=== PATIENT | female | born 1985 | race Caucasian/White ===

== ENCOUNTER 2020-06-06 11:05 | Emergency (ER) | payer OTHER, SELFPAY ==
--- NOTE | ~2020-06-06 | US_ITS ---
EXAMINATION: US pelvic complete w TV EXAM DATE: 06/06/2020 13:46 INDICATION: Abnormal uterine bleeding. TECHNIQUE: Pelvic transabdominal and transvaginal sonogram was performed. There are multiple graysca le and Doppler images available for interpretation. There is no prior study for comparison. FINDINGS: Uterus measures 8.8 x 6.4 x 5.1 cm, is anteverted and morphologically normal. Endometrial stripe measures 6 mm, within normal limits. There are nabothian cysts. There is no free pelvic flu id. Right adnexa: The ovary is not identified. There is no adnexal mass. Left adnexa: The ovary is not identified. There is no adnexal mass. IMPRESSION: 1. Unremarkable pelvic ultrasound exam. Reviewed, dictated and finalized at location A.
[2020-06-06 11:43] VITALS: BP 113/71; PULSE 61; RESP 18; TEMP 36.7; O2SAT 99
--- NOTE | 2020-06-06 12:22 | ED.FEMALEGU ---
HPI - Female Genitourinary General Chief complaint: Vaginal Bleeding Stated complaint: Vaginal Bleeding Time Seen by Provider: 06/06/20 12:05 Source: patient Mode of arrival: ambulatory Limitations: no limitations History of Present Illness HPI Narrative: This is a 35-year-old female that presents to the emergency department for abnormal uterine bleeding. Reports she started her cycle 3 days ago. Reports she has had very heavy bleeding. She had her IUD taken out in March of this year. Was having normal cycles until this 1 which seems to be very heavy. She is not on any other form of control. Reports some intermittent crampy pelvic pain. Her supervisor of research is Dr. Roberst. Denies fever, vomiting, or dysuria. Related Data Allergies Allergy/AdvReac Type Severity Reaction Status Date / Time vancomycin Allergy Mild Verified 04/30/16 13:55 morphine Allergy Unknown Nervousness Verified 04/30/16 13:55 Penicillins Allergy Unknown Verified 04/05/15 11:31 Sulfa (Sulfonamide Allergy Unknown Verified 04/05/15 11:31 Antibiotics) HYDROMORPHONE HCL Allergy Unknown Sweating Uncoded 04/30/16 13:55 Review of Systems Review of Systems: Narrative: CONSTITUTIONAL: Denies fever GASTROINTESTINAL: Reports abdominal/pelvic pain. Denies nausea, vomiting GENITOURINARY: Denies dysuria All systems reviewed & are unremarkable except as noted in HPI and below PMFSH Past Medical History Medical History (Updated 06/06/20 @ 15:15 by Laura Woods PA-C) History of depression Family History Family History (Updated 09/23/15 @ 23:19 by DOCTOR UNKNOWN) Mother Depression Sibling Depression Family history of diabetes mellitus in first degree relative Father Hypertension Family history of diabetes mellitus in first degree relative Other Diabetes mellitus Family history of migraine headaches Family history of thyroid disease Social History Social History Smoking status: Light tobacco smoker Alcohol intake: current Exam Narrative: Exam Narrative: GENERAL: Well-appearing, well-nourished, and in no acute distress. HEAD: Normocephalic, atraumatic. EYES: EOMI. CHEST: Clear to auscultation. No respiratory distress. No wheezes rales or rhonchi HEART: Regular rate and rhythm. No murmur heard. Normal peripheral pulses. ABDOMEN: Soft, nontender, nondistended, normal active bowel sounds. EXTREMITIES: Normal range of motion. No edema. SKIN: Warm, dry, no rash. NEURO: No focal deficits. Alert and oriented x3. PSYCH: Normal mood and affect PELVIC: Normal external genitalia. Small to moderate amount of bright red blood in the vaginal level, slowly oozing from cervix Course Consultations Consultation #1: Spoke with Dr. Roberts about patient and work-up will follow-up in clinic Date: 06/06/20 Time: 15:12 Vital Signs Vital signs: Vital Signs Temperature 98.0 F 06/06/20 11:43 Pulse Rate 61 06/06/20 11:43 Respiratory Rate 18 06/06/20 11:43 Blood Pressure 113/71 06/06/20 11:43 Pulse Oximetry 99 06/06/20 11:43 Temperature 98.0 F 06/06/20 11:43 Pulse Rate 52 L 06/06/20 14:52 Respiratory Rate 16 06/06/20 14:52 Blood Pressure 123/85 06/06/20 14:52 Pulse Oximetry 100 06/06/20 14:52 MDM - Female Genitourinary MDM Narrative Medical decision making narrative: Patient presents to the emergency department for heavy menstrual bleeding. Had her IUD out a couple of months ago. Was having normal periods until this cycle which has been heavy. Patient's vitals are stable. Hemoglobin is 12.7. test is negative. Pelvic ultrasound is unremarkable. No concerning amount of bleeding on exam. Patient is stable and felt appropriate for further outpatient evaluation. Spoke with Dr. Roberts about patient and work-up who will follow-up in clinic. Patient was given warnings to return to the ER Lab Data Attestation: I reviewed the patient's lab results. Result diagrams: 06/06/20 12:22 04
[2020-06-06 12:29] LABS: Basophils Percent Auto 0.5 % (0.2-1.2); Eosinophils Absolute Auto 0.3 K/mm3 (0-0.3); Eosinophils Percent Auto 5.7 % (0-4.4); Hematocrit 37.8 % (37.0-47.0); Hemoglobin 12.7 g/dL (12.0-15.0); Lymphocytes Absolute Auto 2.09 K/mm3 (0.9-3.2); Lymphocytes Percent Auto 35.9 % (18.3-44.2); Mean Corpuscular HGB Conc 33.6 g/dl (32-36); Mean Corpuscular Hemoglobin 28.7 pg (26-34); Mean Corpuscular Volume 85.5 fl (80-100); Mean Platelet Volume 10.1 fl (7.4-10.4); Monocytes Absolute Auto 0.4 K/mm3 (0.1-0.6); Neutrophils Percent Auto 50.9 % (45.5-73.1); Platelet Count Result 183 k/mm3 (150-375); Red Blood Count 4.42 M/mm3 (4.2-5.4); White Blood Count 5.8 K/mm3 (4.5-10.0)
[2020-06-06 12:42] LABS: Alanine Aminotransferase 11 U/L (4-35); Albumin Level 3.7 g/dL (3.5-5.1); Alkaline Phosphatase 59 U/L (38-126); Anion Gap 4 mmol/L (8-16); Aspartate Amino Transferase 15 U/L (14-36); Bilirubin,Total < 0.1 mg/dL (0.2-1.3); Blood Urea Nitrogen 12 mg/dL (7-17); Calcium 8.6 mg/dL (8.4-10.2); Carbon Dioxide 29 mmol/L (22-30); Chloride 109 mmol/L (98-107); Estimated CRCL calculation 119 ml/min; Estimated Glomerular Filt Rate > 60; Glucose 95 mg/dL (65-105); Sodium 142 mmol/L (137-145)
[2020-06-06 12:52] LABS: INR 0.9; Prothrombin Time 12.9 Seconds (11.1-14.7)
[2020-06-06 12:53] LABS: Partial Thromboplastin Time 29.2 SECONDS (22.3-36.8)
[2020-06-06 12:55] VITALS: BP 123/71; PULSE 54
[2020-06-06 12:56] VITALS: BP 133/76
[2020-06-06 12:58] VITALS: BP 123/85; PULSE 73
[2020-06-06 13:01] LABS: Beta HCG Quantitative < 2.39 mIU/ML
[2020-06-06 13:08] LABS: Add Urine Microscopic? NO; Appearance Urine Clear (Clear); Bilirubin Urine Negative (Negative); Blood Urine Negative (Negative); Color Urine Yellow (Yellow); Glucose Urine UA Negative (Negative); Ketones Urine Negative (Negative); Leukocyte Esterase Ur Negative LEU/UL (Negative); Nitrate Urine Negative (Negative); Protein Urine Negative (Negative); Specific Grav Ur 1.011 (1.001-1.035); Urobilinogen Urine Negative mg/dL (<2.0)
[2020-06-06] MEDS: SODIUM CHLORIDE 0.9% IV 1,000 ML 999 ML IV CONT (14:09)
[2020-06-06 14:52] VITALS: BP 123/85; PULSE 52; RESP 16; O2SAT 100
== END 2020-06-06 15:25 | disposition home or self-care (01) ==
PROVIDERS: Physician Assistant; Emergency Provider Emergency Medicine
DX: N93.8 Other specified abnormal uterine and vaginal bleeding (principal); F17.200 Nicotine dependence, unspecified, uncomplicated
CPT/HCPCS: 36415; 76830; 76856; 80053; 81003; 81025; 84702; 85025; 85461; 85610; 85730; 96360; 99284; J7030

== ENCOUNTER 2020-11-20 10:52 | Emergency (ER) | payer OTHER, SELFPAY ==
--- NOTE | ~2020-11-20 | XR_ITS ---
EXAMINATION: XR foot LT min 3V EXAM DATE: 11/20/2020 11:15 INDICATION: Trauma today fell out of lifted truck/lateral pain . Initial encounter. TECHNIQUE: Left foot dorsoplantar, lateral and oblique projections obtained and reviewed. There is n o prior study for comparison. FINDINGS: There is acute closed posttraumatic left 5th metatarsal base fracture with about 5 mm dist raction. Fracture fragment is over 1 cm in size. This should be followed up by orthopedic surgeon to exclude nonunion, or need for internal fixation. There is overlying soft tissue swelling. No other ac raffi findings. Tiny calcaneal posterior spur. IMPRESSION: Left 5th metatarsal base fracture, mild distraction. Orthopedic consult. Reviewed, dictated and finalized at location A. IMPRESSION: Left 5th metatarsal base fracture, mild distraction. Orthopedic co nsult.
[2020-11-20 11:05] VITALS: BP 141/85; PULSE 88; RESP 18; TEMP 37.7; O2SAT 100
--- NOTE | 2020-11-20 11:23 | ED.LOWEXIN ---
HPI - Extremity Injury (Lower) General Chief Complaint: Extremity Injury, Lower Stated Complaint: Lt foot pain Source: patient and RN notes reviewed Limitations: no limitations History of Present Illness HPI Narrative: The overweight patient, previously mostly healthy, presents with left foot pain. Patient states she slipped and fell off taller pickup truck, landing up on her foot. She complains of mod pain and swelling especially laterally. No bleeding, deformity but there is swelling. Screening x-ray is remarkable for proximal fifth metatarsal fracture; she was seen in podiatry in the last year for plantar wart. Patient advised to be nonweightbearing using crutches and splint provided splinting and to follow-up without fail. Related Data Home Medications Medication Instructions Recorded Confirmed bupropion HCl [Wellbutrin XL] 300 mg PO QAM 11/20/20 11/20/20 Allergies Allergy/AdvReac Type Severity Reaction Status Date / Time morphine Allergy Intermediate Nervousness Verified 11/20/20 11:16 Penicillins Allergy Mild Rash Verified 11/20/20 11:16 Sulfa (Sulfonamide Allergy Mild Rash Verified 11/20/20 11:16 Antibiotics) HYDROMORPHONE HCL Allergy Severe Palpitation Uncoded 11/20/20 11:16 s Review of Systems Review of Systems: The patient has been informed that they may have pre-hypertension or Hypertension based on a BP reading in the department. I recommend that the patient call the primary care provider listed on their discharge instructions or a physician of their choice this week to arrange follow up for further evaluation of possible pre-hypertension or Hypertension General/Constitutional: No weight loss,fever Eyes: N0: Redness,discharge Ears/Nose/Throat: No: Epistaxis,ear discharge Respiratory: Denies: Hemoptysis Gastrointestinal: No Vomiting, Bleeding-rectal Skin: No Lumps, eruption Neurologic: No Focal Weakness,Sz Hematologic: Denies: Petechiae/Purpura Psychiatric: No: Suicida ideationl All Other Systems: Reviewed and Negative [facility] Past Medical History Medical History (Updated 11/20/20 @ 11:46 by Noe Velasco MD) History of depression Family History Family History (Updated 09/23/15 @ 23:19 by DOCTOR UNKNOWN) Mother Depression Sibling Depression Family history of diabetes mellitus in first degree relative Father Hypertension Family history of diabetes mellitus in first degree relative Other Diabetes mellitus Family history of migraine headaches Family history of thyroid disease Social History Social History Smoking status: Light tobacco smoker Alcohol intake: current Comments At time of signature, agree with nursing past medical, surgical, social and family history. There is no relevant family history pertinent to the presenting complaint Exam Narrative: General Appearance: Well appearing, Conjunctiva clear Mouth/Throat: Normal appearing, Normal lips, Supple Respiratory: Airway patent, No respiratory distress MS-foot: Fifth MT tenderness, Normal strength (mostly intact, limited flexion/extension by pain), Tenderness ( laterally, with mild decreased ROM), Swelling (laterally), Other (no anterior drawer, no collateral laxity, no Achilles tenderness, Skin: Warm, Dry, Normal color Neurological: A&O x3, Normal affect Course Vital Signs Vital signs: Vital Signs Temperature 99.8 F H 11/20/20 11:05 Pulse Rate 88 11/20/20 11:05 Respiratory Rate 18 11/20/20 11:05 Blood Pressure 141/85 H 11/20/20 11:05 Pulse Oximetry 100 11/20/20 11:05 Temperature 99.8 F H 11/20/20 11:05 Pulse Rate 88 11/20/20 11:05 Respiratory Rate 18 11/20/20 11:05 Blood Pressure 141/85 H 11/20/20 11:05 Pulse Oximetry 100 11/20/20 11:05 Discharge Plan Discharge Clinical Impression: Roe fracture Qualifiers: Encounter type: initial encounter Fracture type: closed Laterality: left Qualified Code(s): S99.192A - Other physeal fractur
[2020-11-20] MEDS: KETOROLAC (*BKC) 60 MG/2 ML VIAL IM (11:26)
== END 2020-11-20 11:55 | disposition home or self-care (01) ==
PROVIDERS: Emergency Provider Emergency Medicine
DX: S92.355A Nondisplaced fracture of fifth metatarsal bone, left foot, initial encounter for closed fracture (principal); W17.89XA Other fall from one level to another, initial encounter; F32.9 Major depressive disorder, single episode, unspecified
CPT/HCPCS: 29515; 73630; 96372; 99214; G0463; J1885

== ENCOUNTER 2021-05-28 18:35 | Emergency (ER) | payer OTHER, SELFPAY ==
[2021-05-28 18:40] VITALS: BP 131/70; PULSE 72; RESP 18; TEMP 37.1; O2SAT 100
--- NOTE | 2021-05-28 19:03 | ED.WOUNDLAC ---
HPI - Wound/Laceration General Chief Complaint: Skin/Abscess/Foreign Body Stated Complaint: scrape down head from nail Time Seen by Provider: 05/28/21 18:40 Source: patient and RN notes reviewed History of Present Illness HPI narrative: Patient is a 36-year-old female who presents the urgent care with complaints of hitting the top of her head on a nail. Patient states that she typically fits right under that board in the basement and a nail was sticking out. Patient does need up-to-date on her tetanus shot. Denies of any loss of consciousness. Denies of any nausea or vomiting after hitting her head. No other acute complaints or injuries. No acute distress noted. Patient aware of the plan of care. Some parts of this dictation were generated by voice recognition software and may contain typographical and/or grammatical inaccuracies. Related Data Home Medications Medication Instructions Recorded Confirmed bupropion HCl [Wellbutrin XL] 300 mg PO QAM 11/20/20 11/20/20 Allergies Allergy/AdvReac Type Severity Reaction Status Date / Time morphine Allergy Intermediate Nervousness Verified 05/28/21 18:52 Penicillins Allergy Mild Rash Verified 05/28/21 18:52 Sulfa (Sulfonamide Allergy Mild Rash Verified 05/28/21 18:52 Antibiotics) HYDROMORPHONE HCL Allergy Severe Palpitation Uncoded 05/28/21 18:52 s Review of Systems Review of Systems: CONSTITUTIONAL: Denies fever, chills, or sweats. EYES: Denies visual changes, redness, or discharge. ENT: Denies rhinorrhea, congestion, sore throat, or otalgia. CARDIOVASCULAR: Denies chest pain, palpitations, or edema. RESPIRATORY: Denies cough or dyspnea. GASTROINTESTINAL: Denies abdominal pain, nausea, vomiting, or diarrhea. GENITOURINARY: Denies dysuria or hematuria. SKIN: Reports of a nail puncture wound to the top of the head MUSCULOSKELETAL: Denies back pain, joint pain, or myalgia. NEUROLOGIC: Denies headache, numbness, or weakness. All other systems reviewed are negative, except as documented in HPI. [facility] Past Medical History Medical History (Updated 05/28/21 @ 19:31 by ARY Sevilla) History of depression Family History Family History (Updated 09/23/15 @ 23:19 by DOCTOR UNKNOWN) Mother Depression Sibling Depression Family history of diabetes mellitus in first degree relative Father Hypertension Family history of diabetes mellitus in first degree relative Other Diabetes mellitus Family history of migraine headaches Family history of thyroid disease Social History Social History Smoking status: Light tobacco smoker Alcohol intake: current Comments At the time of my signature, I reviewed and agree with the nursing past medical, surgical, social, and family history. There is no relevant family history pertinent to the patient complaint. Exam Narrative: GENERAL: This is a well-nourished, well-developed patient, in no apparent distress. HEAD: normocephalic, atraumatic. EYES: PERRL. Sclera clear/white. Vision is grossly intact. EARS: External ears normal NOSE: External nose normal with no obvious nasal discharge, nares without redness, no rhinorrhea. THROAT: Mucous membranes moist NECK: Neck supple SKIN: 2 cm linear laceration to the top of the scalp with scant bloody drainage. Nongaping wound. Warm, intact with no suspicious lesions or rash, good texture and turgor. NEURO: awake, alert, and oriented to person, place and time. There were no obvious focal neurologic abnormalities. EXTREMITIES: No clubbing, cyanosis, or edema. Course Course Level of Care: Express Care Visit Vital Signs Vital signs: Vital Signs Temperature 98.7 F 05/28/21 18:40 Pulse Rate 72 05/28/21 18:40 Respiratory Rate 18 05/28/21 18:40 Blood Pressure 131/70 05/28/21 18:40 Pulse Oximetry 100 05/28/21 18:40 Temperature 98.7 F 05/28/21 18:40 Pulse Rate 72 05/28/21 18:40 Respiratory Rate 18 05/28/21 18:40 Blood Pressure 13
[2021-05-28] MEDS: TETANUS,DIPHTHERIA,AC PERTUSSIS ADULT (0.5 ML) BOOSTRIX IM (19:12)
== END 2021-05-28 19:34 | disposition home or self-care (01) ==
PROVIDERS: Emergency Provider Nurse Practitioner Family
DX: S01.01XA Laceration without foreign body of scalp, initial encounter (principal); W45.0XXA Nail entering through skin, initial encounter; Z23 Encounter for immunization; F32.9 Major depressive disorder, single episode, unspecified
CPT/HCPCS: 12001; 90471; 90715; 99212; G0463

== ENCOUNTER → 2021-09-14 10:09 | Outpatient (CLI) | payer SELFPAY ==
--- NOTE | ~2021-09-14 | CT_ITS ---
EXAMINATION:CT diagnostic chest wo con DATE: 09/14/2021 10:25 INDICATION: Shortness of breath. TECHNIQUE: Computed tomography (CT) of the chest was performed without intravenous contrast. Automate d exposure control and iterative reconstruction technique were employed. The dose-length product (DLP ) was 640.39 mGy-cm. COMPARISON: CT abdomen and pelvis 04/30/2016 FINDINGS: There is no pneumonia or pleural effusion. The heart size is normal. No pericardial effusio n. There are no pathologically enlarged lymph nodes. There are changes of cholecystectomy. There is c hronic mild splenomegaly. There is mild thoracic spondylosis. IMPRESSION: 1. Normal lungs. Reviewed, dictated and finalized at location A. IMPRESSION: 1. Normal lungs.
== END ==
PROVIDERS: PCP Physician Assistant; Visit Provider Physician Assistant
DX: R06.02 Shortness of breath (principal)
CPT/HCPCS: 71250

== ENCOUNTER 2021-09-14 10:42 | Outpatient (CLI) | payer OTHER, SELFPAY ==
--- NOTE | 2021-09-21 09:40 | WPDHOLTEREM ---
Holter/Event Monitor Holter/Event Monitor Date of procedure: 09/21/21 Holter/Event Procedure: 48 Hr Holter Monitor Diagnosis: Shortness of breath and palpitations Indications: Shortness of breath and palpitations Image/Tracing Quality: Good Finding: Average heart rate was 81 beats per minute with minimum heart rate 45 beats per minute and maximum heart rate 148 beats per minute. There were total of 3 isolated ventricular ectopic beats. There was 1 supraventricular tachycardia consistent of 3 beats otherwise no supraventricular ectopy. No atrial fibrillation. No significant pauses or blocks. Patient reported symptoms on 9 different occasions complaining of fluttering, heart racing, shortness of breath, tightness in the chest, and corresponded mostly to sinus rhythm and on 2 occasions to sinus tachycardia. Conclusion: Unremarkable 48 hour Holter monitor without significant arrhythmias. Patient's symptoms corresponded to sinus rhythm or sinus tachycardia.
== END 2021-09-14 10:43 | disposition home or self-care (01) ==
LOC: ANHCARD 10:44
PROVIDERS: PCP Physician Assistant; Visit Provider Physician Assistant
DX: R06.02 Shortness of breath (principal); R00.2 Palpitations
CPT/HCPCS: 93225; 93226

== ENCOUNTER 2023-02-25 12:40 | Emergency (ER) | payer OTHER, SELFPAY ==
--- NOTE | 2023-02-25 12:48 | ED.SKABFB ---
HPI - Skin/Abscess/Foreign Bdy General Chief complaint: Skin/Abscess/Foreign Body Stated complaint: ruptured cyst on back Source: patient, RN notes reviewed and old records reviewed Mode of arrival: ambulatory Limitations: no limitations History of Present Illness HPI narrative: 37-year-old female presents to [facility] with complaint of cyst on right lower back. Patient states has had for about 3 years. Patient states saw alternative medicine practitioner and was referred to surgeon to have removed the patient never followed up. Patient states started getting painful few days ago patient called Dermatology back and cannot get in until March 27. Patient states opened and started draining and is now very painful. MD complaint: abscess/boil Related Data Allergies Allergy/AdvReac Type Severity Reaction Status Date / Time morphine Allergy Intermediate Nervousness Verified 05/28/21 18:52 Penicillins Allergy Mild Rash Verified 05/28/21 18:52 Sulfa (Sulfonamide Allergy Mild Rash Verified 05/28/21 18:52 Antibiotics) doxycycline Allergy Rash Verified 02/25/23 12:56 HYDROMORPHONE HCL Allergy Severe Palpitation Uncoded 05/28/21 18:52 s Review of Systems Constitutional: Constitutional: Reports no additional constitutional complaints, Denies body ache(s), Denies chills, Denies fatigue, Denies fever(s) and Denies headache(s) Eyes: Eyes: Reports no additional eye complaints and Denies blurry vision ENT: Reports system reviewed and no additional complaints, except as documented, Denies vertigo, Denies dizziness, Denies ear discharge, Denies otalgia, Denies facial pain, Denies headache(s), Denies nasal congestion, Denies nasal discharge, Denies sinus pain, Denies sinus pressure and Denies sore throat Cardiovascular: Cardiovascular: Reports no additional cardiovascular complaints, Denies chest pain, Denies chest pain at rest, Denies rapid heart rate and Denies dyspnea Respiratory: Respiratory: Reports no additional respiratory complaints, Denies chest congestion, Denies cough, Denies pain on inspiration, Denies pain with cough and Denies dyspnea Gastrointestinal: Gastrointestinal: Denies abdominal pain, Denies diarrhea, Denies nausea and Denies vomiting Integumentary/Breasts: Skin/Breast: Denies rash Comments: Open sebaceous cyst on back Neurologic: Reports system reviewed and no additional complaints, except as documented, Denies vertigo, Denies dizziness and Denies headache(s) Endocrine: Endocrine: Denies fatigue PMFSH Past Medical History Medical History History of depression Family History Family History Mother Depression Sibling Depression Family history of diabetes mellitus in first degree relative Father Hypertension Family history of diabetes mellitus in first degree relative Other Diabetes mellitus Family history of migraine headaches Family history of thyroid disease Social History Social History Smoking status: Light tobacco smoker Alcohol intake: current Comments At the time of my signature, I reviewed and agree with the nursing past medical, surgical, social, and family history. There is no relevant family history pertinent to the patient complaint. Exam Const: General: cooperative, healthy appearing, no acute distress and well nourished Nutritional Appearance: well nourished Orientation/consciousness: patient oriented x3 Limitations: no limitations HENMT: Head: normal to inspection and normocephalic Ears: external ears normal, TM's normal bilaterally, mastoids normal and Abnormal EAC present Face/Nose/Sinus: normal facial exam Face and sinus: normal facial exam Mouth: Yes Normal oral and palatal mucosa present, Yes oropharynx normal and Yes moist mucous membranes Throat: tonsils normal, uvula midline and no uvular edema Eyes:
[2023-02-25 12:55] VITALS: BP 139/74; PULSE 89; RESP 18; TEMP 36.3; O2SAT 99
[2023-02-25 12:57] VITALS: BP 139/74; PULSE 89; RESP 18; TEMP 36.3; O2SAT 99
== END 2023-02-25 13:30 | disposition home or self-care (01) ==
PROVIDERS: Emergency Provider Registered Nurse
DX: L72.3 Sebaceous cyst (principal); F17.200 Nicotine dependence, unspecified, uncomplicated
CPT/HCPCS: 10060; 99213; G0463

== ENCOUNTER 2023-11-05 10:56 | Emergency (ER) | payer OTHER, SELFPAY ==
[2023-11-05 11:10] VITALS: BP 136/97; PULSE 73; RESP 18; TEMP 36.8; O2SAT 100
--- NOTE | 2023-11-05 11:42 | ED.EAR ---
HPI - Ear Problem General Chief complaint: Ear Stated complaint: Ear Pain Time Seen by Provider: 11/05/23 11:42 Source: patient, RN notes reviewed and old records reviewed Mode of arrival: ambulatory Limitations: no limitations History of Present Illness HPI Narrative: 38 year old female presents to [facility] care with complaints of left ear pain and some sinus congestion and drainage for the past week. Patient reports that she bent over yesterday and the room started spinning. Patient reports no known fevers, chills or sweat,denies any body aches,Patient has been taking some Tylenol an also some sinus mediation for her symptoms. MD Complaint: ear pain and other (sinus congestion and drainage) Location: left ear Severity: moderate Treatment prior to arrival: oral analgesic and other (sinus medication) Related Data Allergies Allergy/AdvReac Type Severity Reaction Status Date / Time morphine Allergy Intermediate Nervousness Verified 03/01/23 14:47 Penicillins Allergy Mild Rash Verified 03/01/23 14:47 Sulfa (Sulfonamide Allergy Mild Rash Verified 03/01/23 14:47 Antibiotics) doxycycline Allergy Rash Verified 03/01/23 14:47 HYDROMORPHONE HCL Allergy Severe Palpitation Uncoded 03/01/23 14:47 s Review of Systems Review of Systems: CONSTITUTIONAL: Denies malaise, chills, sweats, or fever. EYES: Denies visual changes, redness, or discharge. ENT: Reports rhinorrhea, congestion, sinus pain,left otalgia and no sore throat. CARDIOVASCULAR: Denies chest pain, palpitations, or edema. RESPIRATORY: Reports no cough.? Denies dyspnea. GASTROINTESTINAL: Denies abdominal pain, nausea, vomiting, diarrhea SKIN: Denies rash or itching. MUSCULOSKELETAL: Denies myalgia. NEUROLOGIC: Denies headache. episode of room spinning yesterday All systems reviewed & are unremarkable except as noted in HPI and below PMFSH Past Medical History Medical History (Updated 11/06/23 @ 10:02 by Eleonora Murphy NP) History of depression Surgical History Surgical History (Updated 11/06/23 @ 10:02 by Eleonora Murphy NP) History of cholecystectomy History of tonsillectomy and adenoidectomy Family History Family History Mother Depression Sibling Depression Family history of diabetes mellitus in first degree relative Father Hypertension Family history of diabetes mellitus in first degree relative Other Diabetes mellitus Family history of migraine headaches Family history of thyroid disease Social History Social History (Updated 11/06/23 @ 10:03 by Eleonora Murphy NP) Smoking status: Light tobacco smoker Alcohol intake: current Substance use type: does not use Living arrangements: with family Gender identity (if verbalized by the patient): Female Comments At time of signature, agree with nursing past medical, surgical, social and family history. There is no relevant family history pertinent to the presenting complaint Exam Narrative: GENERAL: Well-appearing, well-nourished, and in no acute distress. HEAD: Normocephalic EYES: PERRLA, conjunctivae clear ENT: Nares clear, turbinates edematous and erythematous, clear discharge. Mucous membranes moist.Left TM red and bulging, Right TM pearly kasper with dull light reflex; no tragal tenderness. Oropharynx erythematous without lesions. Tonsils not enlarged and without exudate, no drooling, no hoarseness, no trismus, uvula midline. NECK: Supple. No lymphadenopathy CHEST: Clear to auscultation, breath sounds equal. No wheezing, rhonchi, rales, or stridor. No respiratory distress, speaks in full sentences.SAO2 100% on rom air HEART: Regular rate and rhythm. No murmur heard. SKIN: Warm, dry, no rash. NEURO: Alert and oriented x3. PSYCH: Normal mood and affect Course Course Emergency Course: Patient is aware of diagnosis, understands and agrees to treatment plan.? Anticipatory g
== END 2023-11-05 12:05 | disposition home or self-care (01) ==
PROVIDERS: Emergency Provider Registered Nurse
DX: H65.02 Acute serous otitis media, left ear (principal); F17.200 Nicotine dependence, unspecified, uncomplicated
CPT/HCPCS: 99213; G0463

== ENCOUNTER 2024-02-20 08:06 | Emergency (ER) | payer OTHER, SELFPAY ==
[2024-02-20 08:12] VITALS: BP 120/79; PULSE 75; RESP 20; TEMP 36.7; O2SAT 100
--- NOTE | 2024-02-20 08:31 | ED.URI ---
HPI - URI/Sore Throat General Chief Complaint: Upper Respiratory Infection Stated Complaint: ears/throat/covid exposure Time Seen by Provider: 02/20/24 08:25 Source: patient, RN notes reviewed and old records reviewed Mode of arrival: ambulatory Limitations: no limitations History of Present Illness HPI Narrative: 38-YEAR-OLD FEMALE WHO PRESENTS TO [facility] CARE WITH COMPLAINTS OF EAR AND THROAT PAIN WITH KNOWN COVID EXPOSURE.PATIENT REPORTS THAT HE HAS HAD SOME SORE THROAT FOR THE PAST 2 DAYS AND HAS HAD BILATERAL EAR PAIN SINCE LAST NIGHT WITH THE LEFT EAR WORSE THAT RIGHT. PATIENT ALSO REPORT THAT HAD RECENT COVID AND SON HAD STREP 2 WEEKS AGO. PATIENT HAS BEEN TAKING SOME TYLENOL FOR HER SYMPTOMS MD elicited complaint: sore throat and other (EAR PAIN) Onset (ago): day(s) (2) Severity: moderate Able to tolerate fluids by mouth: Yes Treatments prior to arrival: acetaminophen Related Data Allergies Allergy/AdvReac Type Severity Reaction Status Date / Time morphine Allergy Intermediate Nervousness Verified 03/01/23 14:47 Penicillins Allergy Mild Rash Verified 03/01/23 14:47 Sulfa (Sulfonamide Allergy Mild Rash Verified 03/01/23 14:47 Antibiotics) doxycycline Allergy Rash Verified 03/01/23 14:47 HYDROMORPHONE HCL Allergy Severe Palpitation Uncoded 03/01/23 14:47 s Review of Systems Review of Systems: CONSTITUTIONAL: Denies malaise, chills, sweats, or fever. EYES: Denies visual changes, redness, or discharge. ENT: Reports rhinorrhea, congestion, sinus pain,POSITIVE otalgia and POSITIVE sore throat. CARDIOVASCULAR: Denies chest pain, palpitations, or edema. RESPIRATORY: Reports cough.? Denies dyspnea. GASTROINTESTINAL: Denies abdominal pain, nausea, vomiting, diarrhea SKIN: Denies rash or itching. MUSCULOSKELETAL: Denies myalgia. NEUROLOGIC: Denies headache. All systems reviewed & are unremarkable except as noted in HPI and below PMFSH Past Medical History Medical History History of depression Surgical History Surgical History History of tonsillectomy and adenoidectomy History of cholecystectomy Family History Family History Mother Depression Sibling Depression Family history of diabetes mellitus in first degree relative Father Hypertension Family history of diabetes mellitus in first degree relative Other Diabetes mellitus Family history of migraine headaches Family history of thyroid disease Social History Social History Smoking status: Former smoker Additional smoking assessment comments: quit 2 years ago Alcohol intake: current Alcohol use details: social Substance use type: does not use Living arrangements: with family Gender identity (if verbalized by the patient): Female Comments At time of signature, agree with nursing past medical, surgical, social and family history. There is no relevant family history pertinent to the presenting complaint Exam Narrative: GENERAL: Well-appearing, well-nourished, and in no acute distress. HEAD: Normocephalic EYES: PERRLA, conjunctivae clear ENT: Nares clear, turbinates edematous and erythematous, clear discharge. Mucous membranes moist.Left TM red and bulging, Right TM pearly kasper with dull light reflex bilaterally; no tragal tenderness. Oropharynx erythematous without lesions. Tonsils not present and throat without exudate, no drooling, no hoarseness, no trismus, uvula midline.some post nasal drainage NECK: Supple. No lymphadenopathy CHEST: Clear to auscultation, breath sounds equal. No wheezing, rhonchi, rales, or stridor. No respiratory distress, speaks in full sentences.SAO2 100% on room air HEART: Regular rate and rhythm. No murmur heard. SKIN: Warm, dry, no rash. NEURO: Alert and oriented x3. PSYCH: Normal mood and affect Course Course Emergency Course: Patient is aware of diagnosis, understands and agrees to treatment plan.? Anticipatory guidance given.? Patient agrees to follow-up as directed and is aware of reasons to seek care at the emergency department. Portions of this record may have been created with voice recognition software Level of Care: Express Care Visit Vital Signs Vital signs: Vital Signs Temperature 36.7 C 02/20/24 08:12 Pulse Rate 75 02/20/24 08:12 Respiratory Rate 20 02/20/24 08:12 Blood Pressure 120/79 02/20/24 08:12 Pulse Oximetry 100 02/20/24 08:12 Oxygen Delivery Room Air 02/20/24 08:12 Temperature 36.7 C 02/20/24 08:12 Pulse Rate 75 02/20/24 08:12 Respiratory Rate 20 02/20/24 08:12 Blood Pressure 120/79 02/20/24 08:12 Pulse Oximetry 100 02/20/24 08:12 Oxygen Delivery Room Air 02/20/24 08:12 Reviewed MDM - URI/Sore Throat MDM Narrative Medical decision making narrative: Differential diagnosis considered: Orosco virus, strep pharyngitis, allergic rhinitis, upper respiratory tract infection, sinusitis, rhinosinusitis, nasopharyngitis. viral pharyngitis, otitis media, otitis externa, pneumonia, bronchitis, viral cough syndrome, viral syndrome, and influenza.? Exam findings show no acute concerns or changes; patient is non-toxic appearing and is in no distress.? Patient is appropriate for outpatient treatment and follow-up. Differential Diagnosis Differential diagnosis: Likely upper respiratory infection, otitis media, viral infection and other (COVID) Medical Records Attestation: I reviewed the patient's medical records. Lab Data Attestation: I reviewed the patient's lab results. Lab results narrative: COVID ANTIGEN NEGATIVE Labs: Lab Results 02/20/24 Range/Units 08:16 POC SARS CoV-2 Ag Negative (Negative) Critical Care Time Critical Care Time Critical Care Time: No Discharge Plan Discharge Clinical Impression: Acute left otitis media Patient Disposition: Home, Self-Care Condition: Stable Instructions: Antibiotic Form, Ear Infection (GEN) Additional Instructions: INCREASE FLUIDS ESPECIALLY JUICES AND WATER [id number] COUGH AND COLD MEDICINE OF YOUR CHOICE FOR YOUR SYMPTOMS TYLENOL OR IBUPROFEN FOR ANY FEVER PAIN ZYRTEC CLARITIN OR KARTIK DAILY INCLUDE PLAIN SUDAFED IN A.M. AND P.M. RECOMMEND ROBITUSSIN OR DELSYM COUGH SYRUP FOR ANY COUGH HEAT TO THE FACE 20-30 MINUTES 4-6 TIMES A DAY FOR PAIN SALT WATER GARGLES, THROAT LOZENGES OR THROAT SPRAYS DESIRED ANTIBIOTIC DIRECTED--FINISHED THE MEDICATION IF YOUR SYMPTOMS PERSIST, CHANGE OR WORSEN SIGNIFICANTLY BEFORE YOU CAN CONTACT YOUR PERSONAL PHYSICIAN THEN PLEASE, WITHOUT DELAY, GO TO THE EMERGENCY DEPARTMENT FOR FURTHER EVALUATION. FOLLOW-UP WITH PCP IN 7-10 DAYS OR SOONER IF NEEDED Patient Language: Amharic Prescriptions: New azithromycin 250 mg tablet See Rx Instructions .ROUTE .COMPLEX Qty: 6 0RF Rx Instructions: For 250 mg dose pack: take 500 mg today (day 1), then 250 mg for 4 days (days 2-5) Follow-up/Referrals: PHYSICIAN,ASSOCIATE BUSINESS ANALYST [Primary Care Provider] - Time of Disposition: 08:45 Quality Pedro Coma Scale Eyes: Open Verbal: Oriented and Alert Motor: Follows Commands Pedro Coma Total Score: 15
[2024-02-20 08:35] LABS: EDCOVIDSCREEN Negative (Negative)
== END 2024-02-20 08:46 | disposition home or self-care (01) ==
PROVIDERS: Emergency Provider Registered Nurse
DX: H66.92 Otitis media, unspecified, left ear (principal); Z87.891 Personal history of nicotine dependence; Z20.822 Contact with and (suspected) exposure to COVID-19
CPT/HCPCS: 87426; 99213; G0463

== ENCOUNTER 2024-03-03 08:16 | Emergency (ER) | payer OTHER, SELFPAY ==
[2024-03-03 08:20] VITALS: BP 127/87; PULSE 80; RESP 20; TEMP 36.9; O2SAT 98
--- NOTE | 2024-03-03 08:35 | ED_ITS ---
HPI - URI/Sore Throat General Chief Complaint: Upper Respiratory Infection Stated Complaint: throat/ear Time Seen by Provider: 03/03/24 08:37 Source: patient, RN notes reviewed and old records reviewed Mode of arrival: ambulatory Limitations: no limitations History of Present Illness HPI Narrative: 38 year old female who presents to [facility] care with complaints of left ear pain and left side of her throat having pain especially with swallowing which never completely resolved from when treated on the with Azithromycin. Patient reports that she is not coughing but has some runny nose. Patient reports that she has been also taking Zyrtec and Sudafed for her symptoms. Patient report she feel like 'the left side of her head is in a bubble'. MD elicited complaint: sore throat and other (ear pain) Onset (ago): day(s) (since ) Consistency: constant Pain scale (0-10): 6 Able to tolerate fluids by mouth: Yes Treatments prior to arrival: other (Zyrtec and Sudafed and took Z-pack) Related Data Home Medications ?Medication ?Instructions ?Recorded ?Confirmed ?Last Taken ?Type No Home Medications 03/03/24 03/03/24 Unknown History Allergies Allergy/AdvReac Type Severity Reaction Status Date / Time morphine Allergy Intermediate Nervousness Verified 03/03/24 08:40 Penicillins Allergy Mild Rash Verified 03/03/24 08:40 Sulfa (Sulfonamide Allergy Mild Rash Verified 03/03/24 08:40 Antibiotics) doxycycline Allergy Rash Verified 03/03/24 08:40 HYDROMORPHONE HCL Allergy Severe Palpitation Uncoded 03/03/24 08:40 s Review of Systems Review of Systems: CONSTITUTIONAL: Denies malaise, chills, sweats, or fever. EYES: Denies visual changes, redness, or discharge. ENT: Reports rhinorrhea, congestion,left sinus pain, left otalgia and positive for sore throat. CARDIOVASCULAR: Denies chest pain, palpitations, or edema. RESPIRATORY: Reports no cough.? Denies dyspnea. GASTROINTESTINAL: Denies abdominal pain, nausea, vomiting, diarrhea SKIN: Denies rash or itching. MUSCULOSKELETAL: Denies myalgia. NEUROLOGIC: Denies headache. All systems reviewed & are unremarkable except as noted in HPI and below PMFSH Past Medical History Medical History History of anxiety UTI (urinary tract infection) History of depression Surgical History Surgical History History of tonsillectomy and adenoidectomy History of cholecystectomy Family History Family History Mother Depression Sibling Depression Family history of diabetes mellitus in first degree relative Father Hypertension Family history of diabetes mellitus in first degree relative Other Diabetes mellitus Family history of migraine headaches Family history of thyroid disease Social History Social History Smoking status: Former smoker Additional smoking assessment comments: quit 2 years ago Alcohol intake: current Alcohol use details: social Substance use type: does not use Living arrangements: with family Gender identity (if verbalized by the patient): Female Comments At time of signature, agree with nursing past medical, surgical, social and family history. There is no relevant family history pertinent to the presenting complaint Exam Narrative: GENERAL: Well-appearing, well-nourished,obese, and in no acute distress. HEAD: Normocephalic EYES: PERRLA, conjunctivae clear ENT: Nares clear, turbinates edematous and erythematous, clear discharge, left sided sinus pressure. Mucous membranes moist.Left TM red and bulging, Right TM pearly kasper with dull light reflex; no tragal tenderness. Oropharynx erythematous without lesions. Tonsils not resent and throat without exudate, no drooling, no hoarseness, no trismus, uvula midline. NECK: Supple. No lymphadenopathy CHEST: Clear to auscultation, breath sounds equal. No wheezing, rhonchi, rales, or stridor. No respiratory distress, speaks in full sentences.no cough noted SAO2 98% on room air HEART: Regular rate and rhythm. No murmur heard. SKIN: Warm, dry, no rash. NEURO: Alert and oriented x3. PSYCH: Normal mood and affect Course Course Emergency Course: Patient is aware of diagnosis, understands and agrees to treatment plan.? Anticipatory guidance given.? Patient agrees to follow-up as directed and is aware of reasons to seek care at the emergency department. Portions of this record may have been created with voice recognition software Level of Care: Express Care Visit Vital Signs Vital signs: Vital Signs Temperature 36.9 C 03/03/24 08:20 Pulse Rate 80 03/03/24 08:20 Respiratory Rate 20 03/03/24 08:20 Blood Pressure 127/87 03/03/24 08:20 Pulse Oximetry 98 03/03/24 08:20 Oxygen Delivery Room Air 03/03/24 08:20 Temperature 36.9 C 03/03/24 08:20 Pulse Rate 80 03/03/24 08:20 Respiratory Rate 20 03/03/24 08:20 Blood Pressure 127/87 03/03/24 08:20 Pulse Oximetry 98 03/03/24 08:20 Oxygen Delivery Room Air 03/03/24 08:20 Reviewed MDM - URI/Sore Throat MDM Narrative Medical decision making narrative: Differential diagnosis considered: Orosco virus, strep pharyngitis, allergic rhinitis, upper respiratory tract infection, sinusitis, rhinosinusitis, nasopharyngitis. viral pharyngitis, otitis media, otitis externa, pneumonia, bronchitis, viral cough syndrome, viral syndrome, and influenza.? Exam findings show no acute concerns or changes; patient is non-toxic appearing and is in no distress.? Patient is appropriate for outpatient treatment and follow-up. Differential Diagnosis Differential diagnosis: Likely upper respiratory infection, otitis media, sinusitis, viral infection, pharyngitis and other (pharyngitis) Medical Records Attestation: I reviewed the patient's medical records. Lab Data Attestation: I reviewed the patient's lab results. Lab results narrative: strep screen negative, culture sent Labs: Lab Results 03/03/24 Range/Units 08:38 POC Grp A Strep Screen Negative (Negative) Critical Care Time Critical Care Time Critical Care Time: No Discharge Plan Discharge Clinical Impression: Acute left otitis media Patient Disposition: Home, Self-Care Condition: Stable Instructions: Antibiotic Form, Ear Infection (ED) Additional Instructions: Increase fluids especially juices and water Lppj-bii-[id number] cough and cold medicine of your choice for your symptoms Continue Zyrtec, Claritin or [place] daily may use Sudafed plain for decongestant Tylenol or Ibuprofen for any pain or fever Steroids as directed--take with food heat to the face 20-30 minutes 4-6 times a day for pain Salt water gargles, throat lozenges or throat sprays as desired Antibiotic as directed--finished the medication If your symptoms persist, change or worsen significantly before you can contact your personal physician then please, without delay, go to the emergency department for further evaluation. Follow-up with PCP in 7-10 days or sooner if needed Follow up with PCP soon in regards to your blood pressure which is elevated above threshold for referral. Blood pressure above 120/80 may indicate pre- hypertension. Minimal elevation 127/87 Patient Language: Cymraes Prescriptions: New cefdinir 300 mg capsule 300 mg PO Q12H Qty: 20 0RF prednisone 20 mg tablet 20 mg PO BID Qty: 10 0RF Rx Instructions: Taken a.m. and early afternoon with food No Action No Home Medications Follow-up/Referrals: PHYSICIAN,AUTO MECHANICS INSTRUCTOR [Primary Care Provider] - Time of Disposition: 08:56 Quality Troy Coma Scale Eyes: Open Verbal: Oriented and Alert Motor: Follows Commands Troy Coma Total Score: 15
[2024-03-03 08:51] LABS: EDSTREPNEGPOS1 Negative (Negative)
--- OUTSIDE RECORDS SUMMARY | 2024-03-09 20:18 | XMS_ITS | Clinical Summary ---
Author Organization Formerly [facility] and Access Address [address] [place] [address] Care Team Providers Care Pharmacy Intake Coordinator Name Role Phone Unavailable Primary Care Provider Unavailabl e Encounters Date Type Department Care Team Description 12/17/2023 External Device Data STL ABSTRACTION Provider, Abstract from Last 3 Months Immunizations Name Administration Dates Next Due INFLUENZA VACCINE TRIVALENT MDCK, (6 MOS UP), 0.5ML (PF), IM 11/15/2023 Social History Tobacco Use Types Packs/Day Years Used Date Smoking Tobacco: Never Assessed Sex and Gender Information Value Date Recorded Sex Assigned at Not on file Gender Identity Not on file Sexual Orientation Not on file Plan of Treatment Health Maintenance Due Date Last Done Comments DTAP/TDAP/TD VACCINES (1 - Tdap) 2005 HEPATITIS B VACCINES (1 of 3 - 19+ 3-dose series) 2005 CERVICAL CANCER SCREENING 2016 INFLUENZA VACCINE Completed 11/15/2023 HPV VACCINES Aged Out No longer eligi ble based on patient's age to complete this topic PNEUMOCOCCAL VACCINE 0-64 YEARS Aged Out No longer eligible based on patient's age to complete this topic
--- OUTSIDE RECORDS SUMMARY | 2024-03-09 20:18 | XMS_ITS | Encounter Summary ---
Author Organization [facility] Address [address] [place] [address] Care Team Providers Care Compensation Specialist Name Role Phone Ami Lowery Primary Care Provider [phone] Reason for Visit * Reason Comments Follow-up Encounter Details Date Type Department Care Team (Late st Contact Info) Description 09/07/2021 10:15 AM CDT Office Visit [facility] Family Medicine [address] [place] [address] Ami Lowery PA [address] [place] [address] Cough (Primary Dx); SOB (shortness of breath); Palpitations Social History Tobacco Use Types Packs/Day Years Used Date Smoking Tobacco: Every Day Cigarettes Last attempted to quit: 11/28/2020 Smokeless Tobacco: Never AUDIT-C Answer Date Recorded Q1: How often do you have a drink containing alcohol? Never 09/07/2021 Q2: How many drinks containi ng alcohol do you have on a typical day when you are drinking? Patient does not drink Q3: How often do you have si x or more drinks on one occasion? 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89 09/07/2021 10:26 AM CDT documented in this encounter Progress Notes * Ami Lowery PA - 09/07/2021 10:15 AM CDT Images from the original note were not included. Chief Complaint Follow-up HPI Here for f/u on palpitations, shortness of breath. She notes some improvement with the ppi, some improvement with the new antibiotic. Starting a new job next week and wanting a note to try to return without restrictions. No new symptoms, no chest tightness. She notes that she used to smoke and has quit over the course of the last few weeks. Allergies as of 09/07/2021 - Reviewed 09/07/2021 Allergen Reaction Noted ??? Dilaudid [hydromorphone] Shortness of breath 08/18/2020 ??? Other Rash 02/21/2012 ??? Penicillins Rash 08/18/2020 ??? Sulfa (sulfonamide antibiotics) Rash 08/18/2020 Outpatient Encounter Medications as of 09/07/2021 Medication Sig Dispense Refill ??? albuterol HFA (ProAir HFA) 90 mcg/actuation inhaler Inhale 2 puffs every 4 (four) hours as needed for wheezing or shortness of breath 8.5 g 0 ??? azithromycin (Zithromax Z-Juan) 250 mg tablet 2 tablets day 1, 1 tablet each day on days 2-5. 5 tablet 0 ??? fluticasone propion-salmeteroL (ADVAIR DISKUS) 250-50 mcg/dose diskus inhaler Inhale 1 puff 2 (two) times a day Rinse mouth with water after use. Do not swallow. 3 each 4 ??? methylPREDNISolone (MEDROL DOSEPACK) 4 mg Dosepack Take as directed on package. 21 tablet 0 ??? omeprazole (PriLOSEC) 20 mg capsule Take 1 capsule (20 mg total) by mouth daily 30 capsule 1 ??? buPROPion XL (WELLBUTRIN XL) 300 mg 24 hr tablet Take 1 tablet (300 mg total) by mouth every morning 90 tablet 3 ??? busPIRone (BUSPAR) 7.5 mg tablet Take 1 tablet (7.5 mg total) by mouth 2 (two) times a day 60 tablet 11 No facility-administered encounter medications on file as of 09/07/2021. Review of Systems Constitutional: Negative for fatigue, fever and unexpected weight change. HENT: Negative for congestion. Respiratory: Positive for cough and shortness of breath. Negative for chest tightness and wheezing. Cardiovascular: Negative for chest pain. Gastrointestinal: Negative for abdominal pain. Genitourinary: Negative for difficulty urinating and dysuria. Musculoskeletal: Negative for arthralgias and back pain. Skin: Negative for color change. Neurological: Negative for dizziness. Hematological: Does not bruise/bleed easily. Psychiatric/Behavioral: Negative for confusion. The patient is not nervous/anxious. Vitals: 09/07/21 1026 BP: 114/80 BP Location: Right arm Patient Position: Sitting Pulse: 71 Temp: 36.8 ??C (98.3 ??F) TempSrc: Oral SpO2: 98% Weight: 129.3 kg (285 lb) Height: 177.8 cm (5' 10 ) Physical Exam Vitals and nursing note reviewed. Constitutional: General: She is not in acute distress. Appearance: Normal appearance. She is not ill-appearing or toxic-appearing. HENT: Head: Normocephalic and atraumatic. Eyes: Extraocular Movements: Extraocular movements intact. Cardiovascular: Rate and Rhythm: Normal rate and regular rhythm. Heart sounds: Normal heart sounds. No murmur heard. No friction rub. No gallop. Pulmonary: Effort: Pulmonary effort is normal. No respiratory distress. Breath sounds: Normal breath sounds. No stridor. No wheezing, rhonchi or rales. Chest: Chest wall: No tenderness. Musculoskeletal: General: Normal range of motion. Cervical back: Normal range of motion. Skin: General: Skin is warm and dry. Neurological: Mental Status: She is alert and oriented to person, place, and time. Psychiatric: Mood and Affect: Mood normal. Behavior: Behavior normal. Thought Content: Thought content normal. Assessment/Plan Diagnoses and all orders for this visit: Cough (R05.9) (Primary) Assessment & Plan: Continue with mdp Continue with zpack Continue with advair and prn proventil Advised scheduling ct chest She will report to er if worsening Orders: - Ambulatory referral to Pulmonology; Future SOB (shortness of breath) (R06.02) Assessment & Plan: Continue with mdp Continue with zpack Continue with advair and prn proventil Advised scheduling ct chest She will report to er if worsening Orders: - Ambulatory referral to Pulmonology; Future - 48 HR Holter Monitor; Future Palpitations (R00.2) - 48 HR Holter Monitor; Future Orders Placed This Encounter ??? Ambulatory referral to Pulmonology Standing Status: Future Standing Expiration Date: 09/07/2022 Referral Priority: Routine Referral Type: Consultation Referral Reason: Specialty Services Required Referral Location: [facility] Referred to Provider: Donny Nogueira MD Requested Specialty: Pulmonary Disease Number of Visits Requested: 1 ??? 48 HR Holter Monitor Standing Status: Future Standing Expiration Date: 09/07/2022 Order Specific Question: How will patient receive the monitor? Answer: Patient will coal picker monitor Order Specific Question: Please select the performing department: Answer: External Order [171] Order Specific Question: Is the patient ? Answer: No CHELSI Merritt documented in this encounter Miscellaneous Notes * Assessment & Plan Note - Ami Lowery PA - 09/07/2021 8:29 PM CDT Associated Problem(s): SOB (shortness of breath) Continue with mdp Continue with zpack Continue with advair and prn proventil Advised scheduling ct chest She will report to er if worsening * Assessment & Plan Note - Ami Lowery PA - 09/07/2021 8:28 PM CDT Associated Problem(s): Cough Continue with mdp Continue with zpack Continue with advair and prn naty Advised scheduling ct chest She will report to er if worsening documented in this encounter Plan of Treatment Not on file documented as of this encounter Visit Diagnoses Diagnosis Cough- Primary SOB (shortness of breath) Shortness of breath Palpitations documented in this encounter Care Teams Compensation Specialist Relationship Specialty Start Date End Date Ami Lowery PA PCP - General Wheel Molder 11/07/20 documented as of this encounter
--- OUTSIDE RECORDS SUMMARY | 2024-03-09 20:18 | XMS_ITS | Encounter Summary ---
Author Organization [facility] Address [address] [place] [address] Care Team Providers Care Sand Cleaning Machine Operator Name Role Phone Ami Lowery Primary Care Provider [phone]- [phone] Reason for Referral * Cardiology (Routine) - Closed Specialty Diagnoses / Procedures Referred By Contac t Referred To Contact Diagnoses Palpitations SOB (shortness of breath) Procedures 24 HR Holter Monitor Ami Lowery PA Phone: tel: fax: [address] [address] Phone: tel: fax: Referral ID Status Reason Start Date Expiration Date Visits Re quested Visits Authorized [id number] Closed 09/11/2021 10/11/2022 1 1 Reason for Visit * Reason Onset Date Comments Can't work with a mask 09/11/2021 Encounter Details Date Type Department Care Team (Late st Contact Info) Description 09/11/2021 Telephone [facility] Family Medicine [address] [place] [address] Ami Lowery PA [address] [place] [address] Can't work with a mask Social History Tobacco Use Types Packs/Day Years [...] on file 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 * Telephone Encounter - Ami Lowery PA - 09/11/2021 11:18 AM CDT Ok - i've not ever seen one for just 8 hours (usually 24 or 48). i'll enter an order for 24h, please send to facility of choice. i'm printing a letter now. She will have to remain off of work at this time as she cannot tolerate a mask. * Telephone Encounter - Kayla Mensah - 09/11/2021 10:00 AM CDT Gregoria sent a [employer] message on this issue. When she returned to work after being away for some time, she discovered that her office has a mandatory mask protocol in place. She is not able to work while wearing a mask. She is hoping for a doctor note excusing her from work sent via [employer] if possible. * Telephone Encounter - Christian Martins MA - 09/11/2021 9:22 AM CDT [facility] cardilogist called request an order for Heart Monitor for 8 hours. Pt has appt 09/15/2021 [facility] Fax: [phone] documented in this encounter Plan of Treatment Scheduled Orders Name Type Priority Associated Diagnoses Orde r Schedule 24 HR Holter Monitor Cardiac Services Routine Palpitations SOB (shortness of breath) Expected: 09/11/2021, Expires: 09/11/2022 documented as of this encounter Visit Diagnoses Diagnosis Palpitations- Primary SOB (shortness of breath) Shortness of breath documented in this encounter Care Teams Sand Cleaning Machine Operator Relationship Specialty Start Date End Date Ami Lowery PA PCP - General Finger Cobbler 11/07/20 documented as of this encounter
--- OUTSIDE RECORDS SUMMARY | 2024-03-09 20:18 | XMS_ITS | Encounter Summary ---
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 Patient doing well. * Telephone Encounter - Christian Martins MA - 09/27/2021 9:26 AM CDT Called patient, left a message to give the office a callback. * Telephone Encounter - Christian Martins MA - 09/25/2021 5:22 PM CDT Called patient, left a message to give the office a callback. * Telephone Encounter - Ami Lowery PA - 09/25/2021 5:03 PM CDT Please let gregoria know that her heart monitor indicates essentially normal results - no pauses. Shedid have faster heart beats at one point, maximum 148 beats per minute. How are her symptoms? If they continue, I would advise a consult with cardiology. documented in this encounter Plan of Treatment Not on file documented as of this encounter Visit Diagnoses Not on filedocumented in this encounter Care Teams Assistant Pressman Relationship Specialty Start Date End Date Ami Lowery PA PCP - General Commissioner Of Officials 11/07/20 documented as of this encounter
--- OUTSIDE RECORDS SUMMARY | 2024-03-09 20:18 | XMS_ITS | Encounter Summary ---
Author Organization [facility] Address [address] [place] [address] Care Team Providers Care Plastic Surgery Technician Name Role Phone Unavailable Primary Care Provider Unavailabl e Reason for Visit * Reason Comments Immunization/Injection Pt rec'd flu shot at employer Encounter Details Date Type Department Care Team (Latest Contact Info) Description 11/15/2023 11:00 AM CDT Immunization [facility] [address] [place] [address] [address] [place] [address] Need for influenza vaccination (Primary Dx) Social History Tobacco Use Types Packs/Day Years Used Date Smoking Tobacco: Never Assessed Sex and Gender Information Value Date Recorded Sex Assigned at Not on file Gender Identity Not on file Sexual Orientation Not on file documented as of this encounter Plan of Treatment Not on file documented as of this encounter Visit Diagnoses Diagnosis Need for influenza vaccination- Primary Need for prophylactic vaccination and inoculation against influenza documented in this encounter
--- OUTSIDE RECORDS SUMMARY | 2024-03-09 20:18 | XMS_ITS | Encounter Summary ---
Author Organization [facility] Address [address] [place] [address] Care Team Providers Care Senior Windows Systems Administrator Name Role Phone Ami Lowery Primary Care Provider +1- [phone] Reason for Referral * MRI/CAT/PET Scan (Routine) - Closed Specialty Diagnoses / Procedures Referred By Contac t Referred To Contact Diagnoses SOB (shortness of breath) Procedures CT Chest WO Contrast Ami Lowery PA Phone: tel: fax: [place] [id number] [place] [address] Phone: tel: fax: Referral ID Status Reason Start Date Expiration Date Visits Re quested Visits Authorized [id number] Closed 09/04/2021 10/04/2022 1 1 Reason for Visit * Reason Comments Follow-up Had telemed on 09-01; still having SOB every time she has to be active. Encounter Details Date Type Department Care Team (Late st Contact Info) Description 09/04/2021 3:00 PM CDT Office Visit [facility] Family Medicine [address] [place] [address] Ami Lowery PA [address] [place], [place] [id number] Cough (Primary Dx); SOB (shortness of breath); Morbid obesity with BMI of 40.0-44.9, adult (HCC); BMI 40.0-44.9, adult (HCC); Palpitations Social History Tobacco Use Types Packs/Day Years Used Date Smoking Tobacco: Every Day Cigarettes Last attempted to quit: 11/28/2020 Smokeless Tobacco: Never AUDIT-C Answer Date Recorded Q1: How often do you have a drink containing alcohol? Never 09/01/2021 Q2: How many drinks containi ng alcohol do you have on a typical day when you are drinking? Patient does not drink Q3: How often do you have si x or more drinks on one occasion? 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 Gender Identity Not on file Sexual Orientation Not on file Occupation Industry Job Start Date Job End Date [employer] Not on file Not on file Not on file documented as of this encounter Last Filed Vital Signs Vital Sign Reading Time Taken Comments Blood Pressure 118/82 09/04/2021 2:58 PM CDT Pulse 99 09/04/2021 2:58 PM CDT Temperature 36.7 ??C (98.1 ??F) 09/04/2021 2:58 PM CD T Respiratory Rate 14 09/04/2021 2:58 PM CDT Oxygen Saturation 98% 09/04/2021 2:58 PM CDT Inhaled Oxygen Concentration - - Weight 129.3 kg (285 lb) 09/04/2021 2:58 PM CDT Height 177.8 cm (5' 10 ) 09/04/2021 2:58 PM CDT Body Mass Index 40.89 09/04/2021 2:58 PM CDT documented in this encounter Ordered Prescriptions Prescription Sig Dispense Quantity Refills Last Filled Start Date End Date azithromycin (Zithromax Z-Juan) 250 mg tablet 2 tablets day 1, 1 tablet each day on days 2-5. 5 tablet 09/04/2021 fluticasone propion-salmeteroL (ADVAIR DISKUS) 250-50 mcg/dose diskus inhaler Inhale 1 puff 2 (two) times a day Rinse mouth with water after use. Do not swallow. 3 each 4 09/04/2021 documented in this encounter Progress Notes * Ami Lowery PA - 09/04/2021 3:00 PM CDT Images from the original note were not included. Chief Complaint Follow-up (Had telemed on 09-01; still having SOB every time she has to be active.) HPI Here for palpitations, dyspnea. She notes a squeezing sensation in upper chest, into shoulders, into back. Heart feels like it's racing at times. Onset 08/29/21 when laying in bed. Negative for covid x 2. Did video visit with Taisha Jimenes PA-C, for this last week. Had labs, chest xray completed. Notes history of anxiety but doesn't think it's from that - she is in the middle of changing jobs but notes this is for the better. Does not have any sweating or nausea with it. Has had a cough that she thinks has improved with the steroids and antibiotics. Thinks it feels like her covid illness back in February 2021. Allergies as of 09/04/2021 - Reviewed 09/04/2021 Allergen Reaction Noted ??? Dilaudid [hydromorphone] Shortness of breath 08/18/2020 ??? Other Rash 02/21/2012 ??? Penicillins Rash 08/18/2020 ??? Sulfa (sulfonamide antibiotics) Rash 08/18/2020 Outpatient Encounter Medications as of 09/04/2021 Medication Sig Dispense Refill ??? albuterol HFA (ProAir HFA) 90 mcg/actuation inhaler Inhale 2 puffs every 4 (four) hours as needed for wheezing or shortness of breath 8.5 g 0 ??? buPROPion XL (WELLBUTRIN XL) 300 mg 24 hr tablet Take 1 tablet (300 mg total) by mouth every morning 90 tablet 3 ??? busPIRone (BUSPAR) 7.5 mg tablet Take 1 tablet (7.5 mg total) by mouth 2 (two) times a day 60 tablet 11 ??? methylPREDNISolone (MEDROL DOSEPACK) 4 mg Dosepack Take as directed on package. 21 tablet 0 ??? [DISCONTINUED] doxycycline (VIBRAMYCIN) 100 mg capsule Take 1 tablet/capsule (100 mg total) by mouth 2 (two) times a day for 10 days 20 tablet/capsule 0 ??? azithromycin (Zithromax Z-Juan) 250 mg tablet 2 tablets day 1, 1 tablet each day on days 2-5. 5 tablet 0 ??? fluticasone propion-salmeteroL (ADVAIR DISKUS) 250-50 mcg/dose diskus inhaler Inhale 1 puff 2 (two) times a day Rinse mouth with water after use. Do not swallow. 3 each 4 ??? [DISCONTINUED] metFORMIN (GLUCOPHAGE) 500 mg tablet Take 1 tablet (500 mg total) by mouth 2 (two) times a day with meals (Patient not taking: No sig reported) 60 tablet 11 No facility-administered encounter medications on file as of 09/04/2021. Review of Systems Constitutional: Negative for fatigue, fever and unexpected weight change. HENT: Negative for congestion. Respiratory: Positive for cough, chest tightness and shortness of breath. Negative for wheezing. Cardiovascular: Positive for palpitations. Negative for chest pain. Gastrointestinal: Negative for abdominal pain. Genitourinary: Negative for difficulty urinating and dysuria. Musculoskeletal: Negative for arthralgias and back pain. Skin: Negative for color change. Neurological: Negative for dizziness. Hematological: Does not bruise/bleed easily. Psychiatric/Behavioral: Negative for confusion. The patient is not nervous/anxious. Vitals: 09/04/21 1458 BP: 118/82 Pulse: 99 Resp: 14 Temp: 36.7 ??C (98.1 ??F) TempSrc: Oral SpO2: 98% Weight: 129.3 kg (285 lb) Height: 177.8 cm (5' 10 ) Physical Exam Vitals and nursing note reviewed. Constitutional: General: She is not in acute distress. Appearance: Normal appearance. She is obese. She is not ill-appearing, toxic- appearing or diaphoretic. HENT: Head: Normocephalic and atraumatic. Right Ear: Tympanic membrane, ear canal and external ear normal. Left Ear: Tympanic membrane, ear canal and external ear normal. Eyes: Extraocular Movements: Extraocular movements intact. Cardiovascular: [...] visit: Cough (R05.9) (Primary) Assessment & Plan: We reviewed recent labs and cxr Will discontinue doxycycline and start zpack Advised cutting back on proventil hfa to 1 puff q6h as she is having palpitations She will finish her steroid dose pack Will evaluate further with ct chest She was advised to report to the er if symptoms worsen SOB (shortness of breath) (R06.02) Assessment & Plan: We reviewed recent labs and cxr Will discontinue doxycycline and start zpack Advised cutting back on proventil hfa to 1 puff q6h as she is having palpitations She will finish her steroid dose pack Will evaluate further with ct chest She was advised to report to the er if symptoms worsen Orders: - ECG 12 lead - CT Chest WO Contrast; Future Morbid obesity with BMI of 40.0-44.9, adult (HCC) (E66.01, Z68.41) BMI 40.0-44.9, adult (HCC) (Z68.41) Palpitations (R00.2) Assessment & Plan: ekg in office, reviewed with patient and normal sinus rhythm. Discussed this could be precipitated by proventil hfa, she will scale back on frequency and dosing. Will refer to cardiology for further evaluation and treatment. Orders: - Ambulatory referral to Cardiology; Future Other orders - fluticasone propion-salmeteroL (ADVAIR DISKUS) 250-50 mcg/dose diskus inhaler; Inhale 1 puff 2 (two) times a day Rinse mouth with water after use. Do not swallow. - azithromycin (Zithromax Z-Jaun) 250 mg tablet; 2 tablets day 1, 1 tablet each day on days 2-5. Orders Placed This Encounter ??? CT Chest WO Contrast Standing Status: Future Standing Expiration Date: 09/04/2022 Scheduling Instructions: Requests donald Order Specific Question: Is the patient ? Answer: No Order Specific Question: Where should this order be performed? Answer: External Order [171] ??? Ambulatory referral to Cardiology Standing Status: Future Standing Expiration Date: 09/04/2022 Referral Priority: Routine Referral Type: Consultation Referral Reason: Specialty Services Required Referral Location: [facility] Referred to Provider: Shadi Otoole MD Requested Specialty: Cardiology Number of Visits Requested: 1 ??? ECG 12 lead Order Specific Question: Please select the performing location: Answer: [facility] [142] Order Specific Question: Reason / Symptom Answer: Shortness of Breath ??? fluticasone propion-salmeteroL (ADVAIR DISKUS) 250-50 mcg/dose diskus inhaler Sig: Inhale 1 puff 2 (two) times a day Rinse mouth with water after use. Do not swallow. Dispense: 3 each Refill: 4 ??? azithromycin (Zithromax Z-Juan) 250 mg tablet Si tablets day 1, 1 tablet each day on days 2-5. Dispense: 5 tablet Refill: 0 CHELSI Merritt Cosigned by Arnel Bright MD at 09/05/2021 7:53 AM CDT documented in this encounter Miscellaneous Notes * Assessment & Plan Note - Ami Lowery PA - 09/04/2021 8:15 PM CDT Associated Problem(s): Palpitations ekg in office, reviewed with patient and normal sinus rhythm. Discussed this could be precipitated by proventil hfa, she will scale back on frequency and dosing. Will refer to cardiology for further evaluation and treatment. * Assessment & Plan Note - Ami Lowery PA - 09/04/2021 8:15 PM CDT Associated Problem(s): SOB (shortness of breath) We reviewed recent labs and cxr Will discontinue doxycycline and start zpack Advised cutting back on proventil hfa to 1 puff q6h as she is having palpitations She will finish her steroid dose pack Will evaluate further with ct chest She was advised to report to the er if symptoms worsen * Assessment & Plan Note - Ami Lowery PA - 09/04/2021 8:14 PM CDT Associated Problem(s): Cough We reviewed recent labs and cxr Will discontinue doxycycline and start zpack Advised cutting back on proventil hfa to 1 puff q6h as she is having palpitations She will finish her steroid dose pack Will evaluate further with ct chest She was advised to report to the er if symptoms worsen documented in this encounter Plan of Treatment Not on file documented as of this encounter Procedures Procedure Name Priority Date/Time Associated Diagnosis Comments ECG 12-LEAD Routine 09/04/2021 SOB (shortness of breath) documented in this encounter Results * CT Chest WO Contrast (09/14/2021) Anatomical Region Laterality Modality Body N/A Computed Tomogra phy us Ami GAGNON IMG CT PROCEDURES Final Re sult * ECG 12 lead (09/04/2021) us Ami GAGNON ECG ORDERABLES Final Resu lt documented in this encounter Visit Diagnoses Diagnosis Cough- Primary SOB (shortness of breath) Shortness of breath Morbid obesity with BMI of 40.0-44.9, adult (HCC) BMI 40.0-44.9, adult (HCC) Palpitations documented in this encounter Discontinued Medications Medication Sig Discontinue Reason Start Date End Da te metFORMIN (GLUCOPHAGE) 500 mg tablet Take 1 tablet (500 mg total) by mouth 2 (two) times a day with meals 05/18/2021 09/04/2021 doxycycline (VIBRAMYCIN) 100 mg capsule Take 1 tablet/capsule (100 mg total) by mouth 2 (two) times a day for 10 days 09/01/2021 09/04/2021 documented as of this encounter Care Teams Senior Windows Systems Administrator Relationship Specialty Start Date End Date Ami Lowery PA PCP - General Batch Roller Operator 11/07/20 documented as of this encounter
--- OUTSIDE RECORDS SUMMARY | 2024-03-09 20:18 | XMS_ITS | Referral Summary ---
Author Organization [facility] Address [address] [place] [address] Care Team Providers Care Casino Beverage Server Name Role Phone Ami Lowery Primary Care Provider +1- [phone] Allergies Active Allergy Reactions Criticality Noted Date Comments Hydromorphone Shortness of breath High 08/18/2020 Other Rash Medium 02/21/2012 Penicillins Rash Medium 08/18/2020 Sulfa (Sulfonamide Antibiotics) Rash Medium 07/27 Medications busPIRone (BUSPAR) 7.5 mg tabletIndication s:Generalized Anxiety Disorder Take 1 tablet (7.5 mg total) by mouth 2 (two) times a day 60 tablet 11 2 Active buPROPion XL (WELLBUTRIN XL) 300 mg 24 hr tabletIndication s:Anxiety,Episod e of recurrent major depressive disorder, unspecified depression episode severity (HCC) Take 1 tablet (300 mg total) by mouth every morning 90 tablet 3 2 Active methylPREDNISolo ne (MEDROL DOSEPACK) 4 mg Dosepack Take as directed on package. 21 tablet 2 Active albuterol HFA (ProAir HFA) 90 mcg/actuation inhaler Inhale 2 puffs every 4 (four) hours as needed for wheezing or shortness of breath 8.5 g 2 Active fluticasone propion-salmeter oL (ADVAIR DISKUS) 250-50 mcg/dose diskus inhaler Inhale 1 puff 2 (two) times a day Rinse mouth with water after use. Do not swallow. 3 each 4 2 Active azithromycin (Zithromax Z-Juan) 250 mg tablet 2 tablets day 1, 1 tablet each day on days 2-5. 5 tablet 2 Active omeprazole (PriLOSEC) 20 mg capsule Take 1 capsule (20 mg total) by mouth daily 30 capsule 1 2 Active Active Problems Problem Noted Date Diagnosed Date Palpitations 09/04/2021 Assessment & Plan (09/04/2021 8:16 PM CDT): ekg in office, reviewed with patient and normal sinus rhythm. Discussed this could be precipitated by proventil hfa, she will scale back on frequency and dosing. Will refer to cardiology for further evaluation and treatment. Cough 09/01/2021 Assessment & Plan (09/07/2021 8:28 PM CDT): Continue with mdp Continue with zpack Continue with advair and prn proventil Advised scheduling ct chest She will report to er if worsening Assessment & Plan (09/04/2021 8:15 PM CDT): We reviewed recent labs and cxr Will discontinue doxycycline and start zpack Advised cutting back on proventil hfa to 1 puff q6h as she is having palpitations She will finish her steroid dose pack Will evaluate further with ct chest She was advised to report to the er if symptoms worsen Assessment & Plan (09/01/2021 10:48 AM CDT): Patient has had a persistent cough for the last 2-3 days. She has had shortness of breath associated with walking across the room and some back discomfort. She is not on control pills. Had history of COVID in February. Has some production of the cough. Will go ahead and retest COVID at the [facility]. Will go ahead and check labs including a D-dimer and blood count CMP. Will have her check a chest x-ray also while she was there. Encouraged her to wear a mask until the diagnosis is completed. Will start doxycycline 1 tablet b.i.d. for 10, a Medrol Dosepak as directed, and albuterol inhaler 1-2 puffs Q 4-6 hours as needed. Instructed patient if her symptoms worsen if she has increased shortness of breath if she begins to have more chest pain or back pain she is to go to the ER immediately for further evaluation. Discussed possible diagnosis is not limited to bronchitis versus pneumonia versus PE and that we need to follow very closely. Encouraged her to remain off work until she is re-evaluated on Saturday at 3:00 p.m. with Ami Lowery PA-C SOB (shortness of breath) 09/01/2021 Assessment & Plan (09/07/2021 8:29 PM CDT): Continue with mdp Continue with zpack Continue with advair and prn proventil Advised scheduling ct chest She will report to er if worsening Assessment & Plan (09/04/2021 8:15 PM CDT): We reviewed recent labs and cxr Will discontinue doxycycline and start zpack Advised cutting back on proventil hfa to 1 puff q6h as she is having palpitations She will finish her steroid dose pack Will evaluate further with ct chest She was advised to report to the er if symptoms worsen Assessment & Plan (09/01/2021 10:48 AM CDT): Patient has had a persistent cough for the last 2-3 days. She has had shortness of breath associated with walking across the room and some back discomfort. She is not on control pills. Had history of COVID in February. Has some production of the cough. Will go ahead and retest COVID at the [facility] lab. Will go ahead and check labs including a D-dimer and blood count CMP. Will have her check a chest x-ray also while she was there. Encouraged her to wear a mask until the diagnosis is completed. Will start doxycycline 1 tablet b.i.d. for 10, a Medrol Dosepak as directed, and albuterol inhaler 1-2 puffs Q 4-6 hours as needed. Instructed patient if her symptoms worsen if she has increased shortness of breath if she begins to have more chest pain or back pain she is to go to the ER immediately for further evaluation. Discussed possible diagnosis is not limited to bronchitis versus pneumonia versus PE and that we need to follow very closely. Encouraged her to remain off work until she is re-evaluated on Saturday at 3:00 p.m. with Ami Lowery PA-C History of COVID-19 05/18/2021 Assessment & Plan (05/18/2021 12:36 PM CDT): Resolved Closed fracture of base of fifth metatarsal bone 12/15/2020 Anxiety 12/05/2020 Assessment & Plan (05/18/2021 12:36 PM CDT): Increase BuSpar to 7.5 mg twice daily Assessment & Plan (01/17/2021 5:16 PM WIRE SAW OPERATOR): Add buspar, continue with wellbutrin daily Cigarette smoker 12/05/2020 Assessment & Plan (01/17/2021 5:16 PM WIRE SAW OPERATOR): Has cut back to 1 cig/day, encouraged her to continue to work on smoking cessation Assessment & Plan (12/05/2020 12:15 PM CDT): Advised continued attempts at smoking cessation BMI 40.0-44.9, adult 12/05/2020 Assessment & Plan (05/18/2021 12:36 PM CDT): Congratulated on weight loss. Encouraged continued attempts at heart healthy diet and exercise 4 times a week for 30 minutes each session. Assessment & Plan (01/17/2021 5:15 PM WIRE SAW OPERATOR): Obesity is unchanged. Discussed the patient's BMI. The BMI is above average. BMI management plan is completed. BMI Follow-up includes: nutrition counseling, exercise counseling and education provided. Will add metformin bid in addition to heart healthy diet and exercise Obesity, morbid, BMI 40.0-49.9 11/07/2020 Assessment & Plan (05/18/2021 12:37 PM CDT): Congratulated on weight loss. Encouraged continued attempts at heart healthy diet and exercise 4 times a week for 30 minutes each session. Assessment & Plan (01/17/2021 5:16 PM WIRE SAW OPERATOR): Obesity is unchanged. Discussed the patient's BMI. The BMI is above average. BMI management plan is completed. BMI Follow-up includes: nutrition counseling, exercise counseling and education provided. Will add metformin bid in addition to heart healthy diet and exercise Assessment & Plan (12/05/2020 9:50 AM CDT): Obesity is unchanged. Discussed the patient's BMI. The BMI is above average. BMI management plan is completed. BMI Follow-up includes: nutrition counseling, exercise counseling and education provided. Assessment & Plan (11/07/2020 11:29 AM CDT): Obesity is unchanged. Discussed the patient's BMI. The BMI is above average. BMI management plan is completed. BMI Follow-up includes: nutrition counseling, exercise counseling and education provided.Obesity is unchanged. Discussed the patient's BMI. The BMI is above average. BMI management plan is completed. BMI Follow-up includes: nutrition counseling, exercise counseling and education provided. Tobacco use disorder 11/07/2020 Seasonal allergic rhinitis due to pollen 021 Assessment & Plan (11/07/2020 2:30 PM CDT): Add claritin qd Episode of recurrent major depressive disorder 0 11/07/2020 Assessment & Plan (05/18/2021 12:36 PM CDT): Stable on Wellbutrin, continue medication the same at this time Assessment & Plan (01/17/2021 5:16 PM WIRE SAW OPERATOR): Add buspar, continue with wellbutrin daily Assessment & Plan (12/05/2020 12:14 PM CDT): Increase wellbutrin Will notify office in the coming week result of increase Assessment & Plan (11/07/2020 2:30 PM CDT): Taper lexapro due to weight gain, will start wellbutrin. Advised to er if having s/h ideations. Resolved Problems Problem Noted Date Diagnosed Date Resolved Date Cough 12/15/2020 01/17/2021 Assessment & Plan (12/15/2020 8:43 AM CDT): Will send patient to [place] for Covid-19 testing. The patient was advised to quarantine at least 10 days from symptom onset, but this determination will depend on result of testing. They were advised to contact us in the next 72h if they have not heard results of testing. They were advised to report to the ER if worsening. Acute non-recurrent pansinusitis 12/15/2020 01/17/2021 Assessment & Plan (12/15/2020 8:44 AM CDT): Advised increased fluids, rest Tylenol q6h prn fever/headache F/u in 1w if not improving, sooner if worsening Needs flu shot 12/05/2020 01/17/2021 Assessment & Plan (12/05/2020 12:15 PM CDT): Flu shot today Left ear pain 11/07/2020 01/17/2021 Assessment & Plan (11/07/2020 2:29 PM CDT): Discussed potential etiologies, including tmj Encounter to establish care 11/07/2020 12/05/2020 Assessment & Plan (11/07/2020 2:30 PM CDT): Retrieve records from previous pcp Immunizations Name Administration Dates Next Due Influenza, Quadrivalent, Spl it, Preservative Free, Intramuscular 12/05/2020 Influenza, Trivalent, Preser vative Free, Intramuscular 05/17/2015 Influenza, Unspecified 11/26/2019,12/08/2013, Tdap 05/17/2015 Social History Tobacco Use Types Packs/Day Years [...] staff should administer the PHQ-9) 0 09/07/2021 Personal Safety Answer Date Recorded Getting School Help Needed Not on file 04/21 Comments No Sex and Gender Information Value Date Recorded Sex Assigned at Not on file Legal Sex Female 6:08 PM WIRE SAW OPERATOR Gender Identity Not on file Sexual Orientation Not on file Occupation Industry Job Start Date Job End Date [employer] Not on file Not on file Not on file Last Filed Vital Signs Vital Sign Reading Time Taken Comments Blood Pressure 114/80 09/07/2021 10:26 AM CDT Pulse 71 09/07/2021 10:26 AM CDT Temperature 36.8 ??C (98.3 ??F) 09/07/2021 10:26 AM C DT Respiratory Rate 14 09/04/2021 2:58 PM CDT Oxygen Saturation 98% 09/07/2021 10:26 AM CDT Inhaled Oxygen Concentration - - Weight 129.3 kg (285 lb) 09/07/2021 10:26 AM CDT Height 177.8 cm (5' 10 ) 09/07/2021 10:26 AM CDT Body Mass Index 40.89 09/07/2021 10:26 AM CDT Plan of Treatment Not on file Insurance [employer] OPEN ACCESS [employer] OPEN ACCESS Care Teams Casino Beverage Server Relationship Specialty Start Date End Date Ami Lowery PA PCP - General Wire Bender 11/07/20
--- OUTSIDE RECORDS SUMMARY | 2024-03-09 20:18 | XMS_ITS | Clinical Summary ---
Author Organization [facility] Address [address] [place] [address] Care Team Providers Care Radiography Technician Name Role Phone Ami Lowery Primary Care Provider +1- [phone] Allergies Active Allergy Reactions Criticality Noted Date [...] go ahead and retest COVID at the [facility]. Will go ahead and [...] go ahead and retest COVID at the [facility] lab. Will go ahead and [...] daily Assessment & Plan (01/17/2021 5:16 PM JOURNEYMAN PIPE WELDER): Add buspar, continue with wellbutrin daily Cigarette smoker 12/05/2020 Assessment & Plan (01/17/2021 5:16 PM JOURNEYMAN PIPE WELDER): Has cut back to 1 cig/day, encouraged [...] session. Assessment & Plan (01/17/2021 5:15 PM JOURNEYMAN PIPE WELDER): Obesity is unchanged. Discussed the patient's BMI. [...] session. Assessment & Plan (01/17/2021 5:16 PM JOURNEYMAN PIPE WELDER): Obesity is unchanged. Discussed the patient's BMI. [...] time Assessment & Plan (01/17/2021 5:16 PM JOURNEYMAN PIPE WELDER): Add buspar, continue with wellbutrin daily Assessment [...] 8:43 AM CDT): Will send patient to [place] for Covid-19 testing. The patient was advised [...] Intramuscular 05/17/2015 Influenza, Unspecified 11/26/2019,12/08/2013, Tdap 05/17/2015 Surgical History Surgery Date Site/Laterality Comments [place] CHOLECYSTECTOMY Cholecystectomy - (Added by TW Conv) [place] TONSILLECTOMY PRIMARY/SEC ONDARY <AGE 12 Tonsillectomy - (Added by TW Conv) GALLBLADDER SURGERY Medical History Medical History Date Comments Depression Anxiety Family History Medical History Relation Name Comments Depression Father Diabetes Father Hypertension Father Depression Mother Relation Name Status Comments Father Alive Mother Alive Social History Tobacco Use Types Packs/Day Years [...] on file Legal Sex Female 6:08 PM JOURNEYMAN PIPE WELDER Gender Identity Not on file Sexual Orientation Not on file Occupation Industry Job Start Date Job End Date [employer] Not on file Not on file Not on file Obstetrics History Last Filed Vital Signs Vital Sign Reading [...] 09/07/2021 10:26 AM CDT Plan of Treatment Health Maintenance Due Date Last Done Comments Cervical Cancer Screening 1986 Hepatitis C Screening 1986 Pneumococcal vaccine <65 (1 of 2 - PCV) 1992 Varicella Vaccines (1 of 2 - 13+ 2-dose series) 1999 Hepatitis B Screening 2004 Regular Well Visit/Exam 18-64 2004 Depression Screening 09/07/2022 09/07/2021, 09/04/2021, 09/01/2021, Additional history exists Covid-19 Vaccine ( season) 2023 09/14/2020, 08/17/2020 Influenza Vaccine (#1) 2023 , 11/26/2019, 05/17/2015, Additional history exists DTaP/Tdap/Td Vaccine (2 - Td or Tdap) 05/16/2025 05/17/2015 HPV Vaccines Aged Out No longer eligi ble based on patient's age to complete this topic Insurance Seen OPEN ACCESS [employer] OPEN ACCESS Care Teams Radiography Technician Relationship Specialty Start Date End Date Ami Lowery PA PCP - General Early Intervention School Psychologist 11/07/20
--- OUTSIDE RECORDS SUMMARY | 2024-03-09 20:18 | XMS_ITS | Continuity of Care Document ---
Author Organization [facility] Address [address] [place] [address] Phone Care Team Providers Care Supervisor Mails Name Role Phone Fransico Ponce MD Unavailable Unavailable Allergies, Adverse Reactions, Alerts Substance Reaction Status Criticality HYDROMORPHONE HCL Active No Informa tion Sulfa (Sulfonamide Antibiotics) Active No Information PENICILLIN Active No Information Medications Medication Instructions Dosage Effective Dates (start - stop) Status Comments WELLBUTRIN SR (unknown strength) take 1 tablet by oral route 2 times every day Not Available - Active tramadol 50 mg tablet take 1 tablet by oral route 4 times every day as needed 50 MG - Active ACETAMINOPHEN-CODE INE (unknown strength) take 1 tablet by oral route every 6 hours as needed Not Available - Active Procedures Procedure Date RADEX FOOT COMPL MINIMUM 3 VIEWS 2020 POSTOP FOLLOW-UP VISIT RADEX FOOT COMPL MINIMUM 3 VIEWS 2020 POSTOP FOLLOW-UP VISIT OFFICE/OUTPATIENT VISIT NEW Pneuma/vac walk boot pre ots TX OF METATARSAL FX, EACH Advance Directives Directive Yes / No Effective Date File Name No Information Encounters Encounter Description Practice Location Reason(s) For Visit Diagnoses Date Provider Providers Copied on Encounter [facility] , [address], [place], [address], [place] tel:[phone] [facility] Pain in left footClosed fracture of base of fifth metatarsal bone of left foot, initial encounter Kris Bateman. [address], [place], [place], [id number] . tel: [phone] [facility] , [address] [address], [place], [address], [place] tel:[phone] [facility] Pain in left footClosed fracture of base of fifth metatarsal bone of left foot, initial encounter 1 Kris Bateman. [address], [place], [place], [id number] . tel: [phone] OFFICE/OUTPAT IENT VISIT NEW [facility] , [address], [place], [address], [place] tel:[phone] [facility] Closed fracture of base of fifth metatarsal bone of left foot, initial encounterBody mass index [BMI]40.0-44.9 , adult Sep- 1 Kris Bateman. [address], [place], [place], [id number] . tel: [phone] Family History Family Member Type Diagnosis Age At Onset Mother Problem Alive and well Father Problem hypertension Brother Problem Alive and well Father Problem Diabetes mellitus Brother Problem Diabetes mellitus Brother Problem hypertension Mother Problem Thyroid disorder Sister Problem Alive and well Father Problem Alive and well Payers Payer name Insurance type Covered alliance party ID Kristi santana(s) [facility] Healthlink PPO OT [id number] Social History Type Description Quantity Date Captured Comments Alcohol Use Details Unknown Caffeine Use Details Unknown Tobacco Use Status Cigarette smoker Smoking Status Current every day smoker 2020 Sex Female Chief Complaint And Reason For Visit No Information Reason For Referral Reason For Referral No Information Plan Of Treatment Date Type Action Status Referral Ordered: RADEX FOOT COMPL MINIMUM 3 VIEWS LT ordered History Of Present Illness Encounter Date Complaint History Of Prese nt Illness No Information Functional Status Date Functional Assessmen t No Information Instructions Date Instruction Additional Infor lyssa Giving encouragement to exercise Related to Body mass index [BMI] 40.0-44.9, adult Assessments Type Assessment Date assessment Pain in left foot assessment Closed fracture of b ase of fifth metatarsal bone of left foot, initial encounter Patient Care Teams Name Effective Dates (start - stop) Status Members No Information
--- OUTSIDE RECORDS SUMMARY | 2024-03-09 20:18 | XMS_ITS | Encounter Summary ---
Author Organization [facility] Address [address] [place] [address] Care Team Providers Care Furnace Cooler Name Role Phone Ami Lowery Primary Care Provider +1- [phone] Encounter Details Date Type Department Care Team (Late st Contact Info) Description 09/21/[address] [facility] [address] [place] [address] Scanning, Provider Social History Tobacco Use Types Packs/Day Years [...] on file Legal Sex Female 6:08 PM WINDOWS APPLICATION DEVELOPER Gender Identity Not on file Sexual Orientation Not on file Occupation Industry Job Start Date Job End Date [employer] Not on file Not on file Not on file documented as of this encounter Plan of Treatment Not on file documented as of this encounter Procedures Procedure Name Priority Date/Time Associated Diagnosis Comments CARDIOLOGY DOCUMENT SCAN 09/21/2021 documented in this encounter Results * CARDIOLOGY DOCUMENT SCAN (09/21/2021) Anatomical Region Laterality Modality Other us Provider Scanning CV CARDIAC SERVICES PROCEDURES Final Result documented in this encounter Visit Diagnoses Not on filedocumented in this encounter Care Teams Furnace Cooler Relationship Specialty Start Date End Date Ami Lowery PA PCP - General Painter Drum 11/07/20 documented as of this encounter
--- OUTSIDE RECORDS SUMMARY | 2024-03-09 20:18 | XMS_ITS | Encounter Summary ---
Author Organization [facility] Address [address] [place] [address] Care Team Providers Care Icu Clerk Name Role Phone Unavailable Primary Care Provider Unavailabl e Encounter Details Date Type Department Care Team (Late st Contact Info) Description 12/17/2023 External Device Data [facility] ABSTRACTION Provider, Abstract NO ADDRESS ON FILE Social History Tobacco Use Types Packs/Day Years [...]
--- OUTSIDE RECORDS SUMMARY | 2024-03-09 20:18 | XMS_ITS | Encounter Summary ---
Author Organization [facility] Address [address] [place] [address] Care Team Providers Care Hoop Driving Machine Operator Helper Name Role Phone Ami Lowery Primary Care Provider +1- [phone] Encounter Details Date Type Department Care Team (Late st Contact Info) Description 09/18/2021 Orders Only [facility] Family Medicine [address] [place] [address] Ami Lowery PA [address] [place] [address] SOB (shortness of breath) Social History Tobacco Use Types Packs/Day Years [...] on file Legal Sex Female 6:08 PM CONE TRUCKER Gender Identity Not on file Sexual Orientation Not on file Occupation Industry Job Start Date Job End Date [employer] Not on file Not on file Not on file documented as of this encounter Plan of Treatment Not on file documented as of this encounter Procedures Procedure Name Priority Date/Time Associated Diagnosis Comments CT CHEST WO CONTRAST Schedule Routine, Read Routine (OP Routine) 09/14/2021 SOB (shortness of breath) documented in this encounter Results * CT Chest WO Contrast (09/14/2021) Anatomical Region Laterality Modality Body N/A Computed Tomogra phy Ami GAGNON IMG CT PROCEDURES Final Re sult documented in this encounter Visit Diagnoses Diagnosis SOB (shortness of breath) Shortness of breath documented in this encounter Care Teams Hoop Driving Machine Operator Helper Relationship Specialty Start Date End Date Ami Lowery PA PCP - General Professor Of Exercise Science 11/07/20 documented as of this encounter
--- OUTSIDE RECORDS SUMMARY | 2024-03-09 20:18 | XMS_ITS | Encounter Summary ---
Author Organization [facility] Address [address] [place] [address] Care Team Providers Care Leather Patcher Name Role Phone Ami Lowery Primary Care Provider +1- [phone] Encounter Details Date Type Department Care Team (Late st Contact Info) Description 09/21/2021 Orders Only [facility] Cardiology [address] [place] [address] Pierce Moscoso MD [address] [address] Social History Tobacco Use Types Packs/Day Years [...] on file Legal Sex Female 6:08 PM LABEL OPERATOR Gender Identity Not on file Sexual Orientation Not on file Occupation Industry Job Start Date Job End Date [employer] Not on file Not on file Not on file documented as of this encounter Plan of Treatment Not on file documented as of this encounter Procedures Procedure Name Priority Date/Time Associated Diagnosis Comments CARDIOLOGY DOCUMENT SCAN Routine 09/21/2021 documented in this encounter Results * Cardiology Document Scan (09/21/2021) Anatomical Region Laterality Modality Other us Pierce Moscoso MD CV CARDIAC SERVICES PROCEDURES Final Result documented in this encounter Visit Diagnoses Not on filedocumented in this encounter Care Teams Leather Patcher Relationship Specialty Start Date End Date Ami Lowery PA PCP - General Store Grocery Merchandiser 11/07/20 documented as of this encounter
--- OUTSIDE RECORDS SUMMARY | 2024-03-09 20:19 | XMS_ITS | Encounter Summary ---
Author Organization [facility] Healthcare Address [address] [place] [address] Care Team Providers Care Generating Station Mechanic Name Role Phone Ami Lowery Primary Care Provider +1- [phone] Encounter Details Date Type Department Care Team (Late st Contact Info) Description 12/15/2020 2:25 PM CDT Lab [address] [address] Exposure to SARS-associated coronavirus Social History Tobacco Use Types Packs/Day Years Used Date Smoking Tobacco: Every Day PHQ-2 Answer Date Recorded PHQ-2 Total Score (If total score is 3 or more points, staff should administer the PHQ-9) 2 12/15/2020 Comments No Sex and Gender Information Value Date Recorded Sex Assigned at Not on file 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 Comment: Interpretive Data Synonyms for this test include: PCR and NAAT . ??Testing performed by the [facility] Molecular Infectious Disease Laboratory. The 2019-Novel Coronavirus Assay (COVID-19) Real Time RT-PCR assay is for in vitro diagnostic use under FDA emergency use authorization only. A negative RT-PCR result does not preclude infection with COVID-19 and should not be used as the sole basis for treatment or other patient management decisions. ??Additional sample types have been validated according to CLIA regulations. ?? Current Interpretive Data was last revised on March 31, 2020. First COVID-19 test? Unknown [facility] Employeed in healthcare? No [facility] status? No [facility] Group care resident? No [facility] Hospitalized? No [facility] Is patient in ICU? No [facility] Symptomatic as defined by CDC? Yes [facility] Nasopharyngeal 12/15/2020 10 :24 AM CDT 12/15/2020 3:08 PM CDT Narrative [facility] - 12/15/2020 7:20 PM CDT What is the reason for testing?->Symptoms of COVID-19 in low-risk group (batch) Date of Symptom Onset->12/14/20 us Ami GAGNON [facility] MICROBIOLOGY - GENERAL ORDERABLES Final Result [facility]NA [facility] [place] [address] documented in this encounter Visit Diagnoses Diagnosis Exposure to SARS-associated coronavirus documented in this encounter Additional Health Concerns Infection Onset Date Last Indicated Resolved Time COVID: Suspected 12/15/2020 12/15/2020 12/15/2020 7:21 PM CDT documented as of this encounter Care Teams Generating Station Mechanic Relationship Specialty Start Date End Date Ami Lowery PA PCP - General Data Reviewer 11/07/20 documented as of this encounter
--- OUTSIDE RECORDS SUMMARY | 2024-03-09 20:19 | XMS_ITS | Encounter Summary ---
Author Organization [facility] Medical Group Address [address] [place] [address] Care Team Providers Care Fur Trapper Name Role Phone Ami Lowery Primary Care Provider +1- [phone] Reason for Visit * Reason Comments Follow-up Encounter Details Date Type Department Care Team (Late st Contact Info) Description 12/05/2020 9:45 AM CDT Office Visit [facility] Family Medicine [address] [place] [id number] Ami Lowery PA [address] [place] [address] Episode of recurrent major depressive disorder, unspecified depression episode severity (HCC) (Primary Dx); Anxiety; Needs flu shot; Cigarette smoker; Obesity, morbid, BMI 40.0-49.9 (HCC); Morbid obesity with BMI of 40.0-44.9, adult (HCC) Social History Tobacco Use Types Packs/Day Years Used Date Smoking Tobacco: Every Day PHQ-2 Answer Date Recorded PHQ-2 Total Score (If total score is 3 or more points, staff should administer the PHQ-9) 6 12/05/2020 Comments No Sex and Gender Information Value Date Recorded Sex Assigned at Not on file 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 Gender Identity Not on file Sexual Orientation Not on file Occupation Industry Job Start Date Job End Date [employer] Not on file Not on file Not on file documented as of this encounter Last Filed Vital Signs Vital Sign Reading Time Taken Comments Blood Pressure 115/75 12/05/2020 9:47 AM CDT Pulse 78 12/05/2020 9:47 AM CDT Temperature 36.3 ??C (97.4 ??F) 12/05/2020 9:47 AM CD T Respiratory Rate - - Oxygen Saturation 97% 12/05/2020 9:47 AM CDT Inhaled Oxygen Concentration - - Weight 125.6 kg (277 lb) 12/05/2020 9:47 AM CDT Height 175.3 cm (5' 9.02 ) 12/05/2020 9:47 AM CD T Body Mass Index 40.89 12/05/2020 9:47 AM CDT documented in this encounter Ordered Prescriptions Prescription Sig Dispense Quantity Refills Last Filled Start Date End Date buPROPion XL (WELLBUTRIN XL) 300 mg 24 hr tabletIndications: Episode of recurrent major depressive disorder, unspecified depression episode severity (HCC),Anxiety Take 1 tablet (300 mg total) by mouth every morning 90 tablet 1 12/05/2020 2 documented in this encounter Progress Notes * Ami Lowery PA - 12/05/2020 9:45 AM CDT Images from the original note were not included. Chief Complaint Follow-up HPI Here for f/u of depression, tob use. Working with dr. valentin from [facility], has fracture of the left foot after moving and stepping wrong onit. Has to wear the boot x 6w and then will determine if she needs surgery. Having to quit smoking because of the pending surgery Has had several family deaths, an increase in anxiety/depression. In the past has been on zoloft and prozac without improvement in symptoms. Was also on buspar, states that it didn't seem to help. Continues with weight gain and frustrations. Wondering about pursuing a bariatric surgery and wouldlike a referral to the [facility]. Allergies as of 12/05/2020 - Reviewed 12/05/2020 Allergen Reaction Noted ??? Dilaudid [hydromorphone] Shortness of breath 08/18/2020 ??? Other Rash 02/21/2012 ??? Penicillins Rash 08/18/2020 ??? Sulfa (sulfonamide antibiotics) Rash 08/18/2020 Outpatient Encounter Medications as of 12/05/2020 Medication Sig Dispense Refill ??? loratadine (CLARITIN) 10 mg tablet Take 1 tablet (10 mg total) by mouth daily 30 tablet 2 ??? [DISCONTINUED] buPROPion XL (WELLBUTRIN XL) 150 mg 24 hr tablet Take 1 tablet (150 mg total) bymouth every morning 30 tablet 5 ??? buPROPion XL (WELLBUTRIN XL) 300 mg 24 hr tablet Take 1 tablet (300 mg total) by mouth every morning 90 tablet 1 ??? [DISCONTINUED] escitalopram (LEXAPRO) 10 mg tablet Take 1 tablet (10 mg total) by mouth daily for 10 days 10 tablet 0 No facility-administered encounter medications on file as of 12/05/2020. Review of Systems Constitutional: Negative for fatigue, fever and unexpected weight change. HENT: Negative for congestion. Respiratory: Negative for cough, chest tightness and shortness of breath. Cardiovascular: Negative for chest pain and palpitations. Gastrointestinal: Negative for abdominal pain. Genitourinary: Negative for difficulty urinating and dysuria. Musculoskeletal: Positive for arthralgias. Negative for back pain. Skin: Negative for color change. Neurological: Negative for dizziness. Hematological: Does not bruise/bleed easily. Psychiatric/Behavioral: Positive for dysphoric mood. Negative for confusion. The patient is nervous/anxious. Vitals: 12/05/20 0947 BP: 115/75 BP Location: Left arm Patient Position: Sitting Pulse: 78 Temp: 36.3 ??C (97.4 ??F) SpO2: 97% Weight: 125.6 kg (277 lb) Height: 175.3 cm (5' 9.02 ) Physical Exam Vitals and nursing note reviewed. Constitutional: General: She is not in acute distress. Appearance: Normal appearance. She is obese. She is not ill-appearing, toxic- appearing or diaphoretic. HENT: Head: Normocephalic and atraumatic. Pulmonary: Effort: Pulmonary effort is normal. Breath sounds: Normal breath sounds. Musculoskeletal: Comments: CAM boot LLE Neurological: General: No focal deficit present. Mental Status: She is alert and oriented to person, place, and time. Mental status is at baseline. Psychiatric: Mood and Affect: Mood normal. Behavior: Behavior normal. Thought Content: Thought content normal. Judgment: Judgment normal. Assessment/Plan Diagnoses and all orders for this visit: Episode of recurrent major depressive disorder, unspecified depression episode severity (HCC) (F33.9) (Primary) Assessment & Plan: Increase wellbutrin Will notify office in the coming week result of increase Orders: - buPROPion XL (WELLBUTRIN XL) 300 mg 24 hr tablet; Take 1 tablet (300 mg total) by mouth every morning Anxiety (F41.9) - buPROPion XL (WELLBUTRIN XL) 300 mg 24 hr tablet; Take 1 tablet (300 mg total) by mouth every morning Needs flu shot (Z23) Assessment & Plan: Flu shot today Orders: - Flu Vaccine Quad PF 6m+ IM - Fluarix / FluLaval / Fluzone Cigarette smoker (F17.210) Assessment & Plan: Advised continued attempts at smoking cessation Obesity, morbid, BMI 40.0-49.9 ([facility]) (E66.01) Assessment & Plan: Obesity is unchanged. Discussed the patient's BMI. The BMI is above average. BMI management plan is completed. BMI Follow-up includes: nutrition counseling, exercise counseling and education provided. Orders: - Ambulatory referral to Bariatric Surgery; Future Morbid obesity with BMI of 40.0-44.9, adult ([facility]) (E66.01, Z68.41) - Ambulatory referral to Bariatric Surgery; Future Orders Placed This Encounter ??? Flu Vaccine Quad PF 6m+ IM - Fluarix / FluLaval / Fluzone ??? Ambulatory referral to Bariatric Surgery [address] [address] Standing Status: Future Standing Expiration Date: 12/05/2021 Referral Priority: Routine Referral Type: Consultation Referral Reason: Specialty Services Required Referral Location: External Order Referred to Provider: Ashley Layton MD Requested Specialty: Bariatrics Number of Visits Requested: 1 ??? buPROPion XL (WELLBUTRIN XL) 300 mg 24 hr tablet Sig: Take 1 tablet (300 mg total) by mouth every morning Dispense: 90 tablet Refill: 1 [address] documented in this encounter Miscellaneous Notes * Assessment & Plan Note - Ami Lowery PA - 12/05/2020 12:15 PM CDT Associated Problem(s): Cigarette smoker Advised continued attempts at smoking cessation * Assessment & Plan Note - Ami Lowery PA - 12/05/2020 12:15 PM CDT Associated Problem(s): Needs flu shot (Resolved 01/17/2021) Flu shot today * Assessment & Plan Note - Ami Lowery PA - 12/05/2020 12:14 PM CDT Associated Problem(s): Episode of recurrent major depressive disorder (HCC) Increase wellbutrin Will notify office in the coming week result of increase * Assessment & Plan Note - Cha Huynh MA - 12/05/2020 9:50 AM CDTAssociated Problem(s): Obesity, morbid, BMI 40.0-49.9 (HCC) Obesity is unchanged. Discussed the patient's BMI. The BMI is above average. BMI management plan is completed. BMI Follow-up includes: nutrition counseling, exercise counseling and education provided. documented in this encounter Plan of Treatment Not on file documented as of this encounter Visit Diagnoses Diagnosis Episode of recurrent major depressive disorder, unspecified depression episode severity (HCC)- Primary Anxiety Anxiety state, unspecified Needs flu shot Need for prophylactic vaccination and inoculation against influenza Cigarette smoker Tobacco use disorder Obesity, morbid, BMI 40.0-49.9 (HCC) Morbid obesity with BMI of 40.0-44.9, adult (HCC) documented in this encounter Discontinued Medications Medication Sig Discontinue Reason Start Date End Da te escitalopram (LEXAPRO) 10 mg tabletIndications:Episod e of recurrent major depressive disorder, unspecified depression episode severity (HCC) Take 1 tablet (10 mg total) by mouth daily for 10 days 11/07/2020 12/05/2020 buPROPion XL (WELLBUTRIN XL) 150 mg 24 hr tabletIndications:Tobacc o use disorder,Episode of recurrent major depressive disorder, unspecified depression episode severity (HCC) Take 1 tablet (150 mg total) by mouth every morning 11/07/2020 12/05/2020 documented as of this encounter Orders Immunization/Injection Count Last Ordered Date First Ordered Date FLU VACCINE QUAD PF 6M+ IM - FLUARIX / FLULAVAL / FLUZONE- SYRINGE 1 12/05/2020 documented in this encounter Care Teams Fur Trapper Relationship Specialty Start Date End Date Ami Lowery PA PCP - General Cma 11/07/20 documented as of this encounter
--- OUTSIDE RECORDS SUMMARY | 2024-03-09 20:19 | XMS_ITS | Encounter Summary ---
Author Organization [facility] Medical Group Address [address] [place] [address] Care Team Providers Care Grain Merchandiser Name Role Phone Ami Lowery Primary Care Provider [phone]- [phone] Encounter Details Date Type Department Care Team (Late st Contact Info) Description 12/15/2020 Orders Only [facility] Testing Site - [facility] Building [address] [place] [address] [address] [place] [address] Ami Lowery PA [facility] [place] [address] Exposure to SARS-associated coronavirus (Primary Dx) Social History Tobacco Use Types Packs/Day Years Used Date Smoking Tobacco: Every Day PHQ-2 Answer Date Recorded PHQ-2 Total Score (If total score is 3 or more points, staff should administer the PHQ-9) 2 12/15/2020 Comments No Sex and Gender Information Value Date Recorded Sex Assigned at Not on file 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 Comment: ?? Order Specific Questions Question Answer Comment Testing types: Symptomatic Low Risk ?? Date of Symptom Onset 12/14/2020 ?? Testing site patient will be sent to: [facility] ?? Date testing requested: 12/15/2020 ?? Testing: COVID-19 RNA ?? Is this the first COVID-19 test for this patient? Does the patient currently work in a healthcare facility with direct patient contact? No ?? Is the patient a resident of a congregate care or living setting? No ?? Is the patient ? No ?? Please select the performing region: [facility] documented in this encounter Plan of Treatment Not on file documented as of this encounter Results * COVID-19 Coronavirus RNA Nasopharyngeal (12/15/2020 10:24 AM CDT) COVID-19 RNA Not Detected [facility] Comment: Interpretive Data Synonyms for this test include: PCR and NAAT . ??Testing performed by the [facility] Molecular Infectious Disease Laboratory. The 2019-Novel [...] March 31, 2020. First COVID-19 test? Unknown [facility] Employeed in healthcare? No [facility] status? No [facility] Group care resident? No [facility] Hospitalized? No [facility] Is patient in ICU? No [facility] Symptomatic as defined by CDC? Yes [facility] Nasopharyngeal 12/15/2020 10 :24 AM CDT 12/15/2020 3:08 PM CDT Narrative [facility] - 12/15/2020 7:20 PM CDT What is the reason for testing?->Symptoms of COVID-19 in low-risk group (batch) Date of Symptom Onset->12/14/20 Ami GAGNON [facility] MICROBIOLOGY - GENERAL ORDERABLES Final Result ANA [facility] Department [place] [address] documented in this encounter Visit Diagnoses Diagnosis Exposure to SARS-associated coronavirus- Primary Exposure to SARS-associated coronavirus documented in this encounter Additional Health Concerns Infection Onset Date Last Indicated Resolved Time COVID: Suspected 12/15/2020 12/15/2020 12/15/2020 7:21 PM CDT documented as of this encounter Care Teams Grain Merchandiser Relationship Specialty Start Date End Date Ami Lowery PA PCP - General Subsorter 11/07/20 documented as of this encounter
--- OUTSIDE RECORDS SUMMARY | 2024-03-09 20:19 | XMS_ITS | Encounter Summary ---
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 Influenza A RNA Negative Negative [facility] Influenza B RNA Negative Negative [facility] RSV RNA Negative Negative [facility] Comment: Interpretive data: This test is performed using the [employer] Xpert Xpress CoV-2/Flu/RSV plus assay. This is a multiplex, real-time reverse transcriptase PCR assay intended for the qualitative detection of nucleic acid from SARS-CoV-2, influenza A, influenza B, and respiratory syncytial virus. This assay has been reviewed by the FDA for Emergency Use Authorization (EUA). The performance characteristics have been verified by the performing laboratory. Results must be considered in the clinical context, and a negative result does not rule out infection. Interpretive Data last revised 2021. Nasopharyngeal 09/01/2021 11 :37 AM CDT 09/01/2021 5:35 PM CDT Narrative [facility] - 09/01/2021 7:01 PM CDT Is the Patient experiencing symptoms consistent with COVID?->Yes Date of Symptom Onset->08/30/21 Reason for testing?->Symptomatic Known exposure to confirmed or suspected COVID-19 case?->No Is the patient experiencing any symptoms consistent with COVID (eg. Fever, cough, shortness of breath)?->Yes What is the reason for testing?->Symptoms of COVID-19 in low-risk group (Batched) us Melissa Romero NP LAB MICROBIOLOGY - GENERAL SHAWANDA SEXTON Final Result [facility] [address] Department [place] [address] documented in this encounter Visit Diagnoses Diagnosis Encounter for screening for COVID-19 documented in this encounter Additional Health Concerns Infection Onset Date Last Indicated Resolved Time COVID: Suspected 09/01/2021 09/01/2021 09/01/2021 7:02 PM CDT documented as of this encounter Care Teams Coat Checker Relationship Specialty Start Date End Date Ami Lowery PA PCP - General Hearing Therapist 11/07/20 documented as of this encounter
--- OUTSIDE RECORDS SUMMARY | 2024-03-09 20:19 | XMS_ITS | Encounter Summary ---
Author Organization [facility] Medical Group Address [address] [place] [address] Care Team Providers Care Brownell Operator Name Role Phone Ami Lowery Primary Care Provider +1- [phone] Encounter Details Date Type Department Care Team (Late st Contact Info) Description 02/27/2021 Orders Only [facility] Family Medicine [address] [place] [address] Ami Lowery PA [address] [place] [address] Obesity, morbid, BMI 40.0-49.9 (HCC) (Primary Dx) Social History Tobacco Use Types Packs/Day Years Used Date Smoking Tobacco: Former Cigarettes Q uit: 11/28/2020 Smokeless Tobacco: Never PHQ-2 Answer Date Recorded PHQ-2 Total Score 4 01/17/2021 Comments No Sex and Gender Information Value Date Recorded Sex Assigned at Not on file 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
--- OUTSIDE RECORDS SUMMARY | 2024-03-09 20:19 | XMS_ITS | Encounter Summary ---
Author Organization [facility] Address [address] [place] [address] Care Team Providers Care Educational Program Director Name Role Phone Ami Lowery Primary Care Provider [phone] Reason for Visit * Reason Comments COVID-19 EVALUATION Encounter Details Date Type Department Care Team (Late st Contact Info) Description 12/15/2020 8:30 AM CDT Telemedicine [facility] Family Medicine [address] [place] [address] Ami Lowery PA [facility] [place] [address] Cough (Primary Dx); Acute non-recurrent pansinusitis Social History Tobacco Use Types Packs/Day Years Used Date Smoking Tobacco: Every Day PHQ-2 Answer Date Recorded PHQ-2 Total Score (If total score is 3 or more points, staff should administer the PHQ-9) 2 12/15/2020 Comments No Sex and Gender Information Value Date Recorded Sex Assigned at Not on file 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 Gender Identity Not on file Sexual Orientation Not on file Occupation Industry Job Start Date Job End Date [employer] Not on file Not on file Not on file documented as of this encounter Ordered Prescriptions Prescription Sig Dispense Quantity Refills Last Filled Start Date End Date benzonatate (TESSALON) 100 mg capsuleIndications :Cough Take 1 capsule (100 mg total) by mouth 3 (three) times a day as needed for cough for up to 7 days 21 capsule 12/15/2020 10/28/202 1 azithromycin (Zithromax Z-Juan) 250 mg tabletIndications: Acute non-recurrent pansinusitis 2 tablets on day 1, days 2-5 1 tablet once daily 5 tablet 12/15/2020 1 documented in this encounter Progress Notes * Ami Lowery PA - 12/15/2020 8:30 AM CDT Chief Complaint COVID-19 EVALUATION HPI Here for video visit - having nasal congestion, sinus pressure, pnd, and cough. No fevers or chills. Has had a mild sore throat additionally. Onset in the last few days. No known covid exposure. Using benadryl prn with minimal improvement. Work requesting a covid test. This was a telemedicine visit with Gregoria ruiz which took place via real-time video connection with [employer]. During the visit, I was located in the office and the patient was [facility]. The patient visit started at 830 and ended at 842. My total encounter time on 12/15/2020 was 12 minutes which was spent in the activities documented in the note. This includes time spent prior to the visit and after the visit in direct care of the patient. This time does not include time spent in any separately reportable services.. The patient has been informed that the visit may not be secure and acknowledged the information. I have explained the option of participating in a telephone or video visit during the COVID-19 public health emergency to the patient. After being given an opportunity to ask questions about and discuss this type of visit, the patient verbally consented to proceeding with the telephone/video visit.The patient understands that this service replaces an office visit and they may be billed and/or responsible for any applicable copayments. Allergies as of 12/15/2020 - Reviewed 12/15/2020 Allergen Reaction Noted ??? Dilaudid [hydromorphone] Shortness of breath 08/18/2020 ??? Other Rash 02/21/2012 ??? Penicillins Rash 08/18/2020 ??? Sulfa (sulfonamide antibiotics) Rash 08/18/2020 Outpatient Encounter Medications as of 12/15/2020 Medication Sig Dispense Refill ??? buPROPion XL (WELLBUTRIN XL) 300 mg 24 hr tablet Take 1 tablet (300 mg total) by mouth every morning 90 tablet 1 ??? loratadine (CLARITIN) 10 mg tablet Take 1 tablet (10 mg total) by mouth daily 30 tablet 2 ??? azithromycin (Zithromax Z-Juan) 250 mg tablet 2 tablets on day 1, days 2-5 1 tablet once daily 5tablet 0 ??? benzonatate (TESSALON) 100 mg capsule Take 1 capsule (100 mg total) by mouth 3 (three) times a day as needed for cough for up to 7 days 21 capsule 0 No facility-administered encounter medications on file as of 12/15/2020. Review of Systems Constitutional: Negative for chills and fever. HENT: Positive for rhinorrhea and sore throat. Negative for ear pain and postnasal drip. Respiratory: Positive for cough. Negative for shortness of breath and wheezing. Cardiovascular: Negative for chest pain. Musculoskeletal: Negative for myalgias. Skin: Negative for rash. Neurological: Positive for headaches. There were no vitals filed for this visit. Physical Exam Vitals and nursing note reviewed. Constitutional: General: She is not in acute distress. Appearance: Normal appearance. She is not ill-appearing, toxic-appearing or diaphoretic. HENT: Head: Normocephalic and atraumatic. Pulmonary: Effort: Pulmonary effort is normal. Breath sounds: Normal breath sounds. Neurological: General: No focal deficit present. Mental Status: She is alert and oriented to person, place, and time. Psychiatric: Mood and Affect: Mood normal. Behavior: Behavior normal. Thought Content: Thought content normal. Assessment/Plan Diagnoses and all orders for this visit: Cough (R05.9) (Primary) Assessment & Plan: Will send patient to [facility] for Covid-19 testing. The patient was advised to quarantine at least 10 days from symptom onset, but this determination will depend on result of testing. They were advised to contact us in the next 72h if they have not heard results of testing. They were advised to report to the ER if worsening. Orders: - Request for Ambulatory Collection Site Testing - Adult; Future Acute non-recurrent pansinusitis (J01.40) Assessment & Plan: Advised increased fluids, rest Tylenol q6h prn fever/headache F/u in 1w if not improving, sooner if worsening Orders: - Request for Ambulatory Collection Site Testing - Adult; Future - azithromycin (Zithromax Z-Juan) 250 mg tablet; 2 tablets on day 1, days 2-5 1 tablet once daily - benzonatate (TESSALON) 100 mg capsule; Take 1 capsule (100 mg total) by mouth 3 (three) times a day as needed for cough for up to 7 days Orders Placed This Encounter ??? Request for Ambulatory Collection Site Testing - Adult Standing Status: Future Standing Expiration Date: 12/15/2021 Referral Priority: Routine Referral Type: Consultation Referral Reason: Specialty Services Required Referral Location: [facility] Requested Specialty: Family Medicine Number of Visits Requested: 1 ??? azithromycin (Zithromax Z-Juan) 250 mg tablet Si tablets on day 1, days 2-5 1 tablet once daily Dispense: 5 tablet Refill: 0 ??? benzonatate (TESSALON) 100 mg capsule Sig: Take 1 capsule (100 mg total) by mouth 3 (three) times a day as needed for cough for up to 7 days Dispense: 21 capsule Refill: 0 CHELSI Turner documented in this encounter Miscellaneous Notes * Assessment & Plan Note - Ami Lowery PA - 12/15/2020 8:43 AM CDT Associated Problem(s): Acute non-recurrent pansinusitis (Resolved 01/17/2021) Advised increased fluids, rest Tylenol q6h prn fever/headache F/u in 1w if not improving, sooner if worsening * Assessment & Plan Note - Ami Lowery PA - 12/15/2020 8:43 AM CDT Associated Problem(s): Cough (Resolved 01/17/2021) Will send patient to [facility] for Covid-19 testing. The patient was advised to quarantine at least 10 days from symptom onset, but this determination will depend on result of testing. They were advised to contact us in the next 72h if they have not heard results of testing. They were advised to report to the ER if worsening. documented in this encounter Plan of Treatment Not on file documented as of this encounter Visit Diagnoses Diagnosis Cough- Primary Acute non-recurrent pansinusitis documented in this encounter Care Teams Educational Program Director Relationship Specialty Start Date End Date Ami Lowery PA PCP - General Data Integrity Consultant 11/07/20 documented as of this encounter
--- OUTSIDE RECORDS SUMMARY | 2024-03-09 20:19 | XMS_ITS | Encounter Summary ---
Author Organization [facility] Address [address] [place] [address] Care Team Providers Care Perishable Fruit Inspector Name Role Phone Ami Lowery Primary Care Provider [phone]- [phone] Reason for Visit * Reason Comments Establish Care Earache Encounter Details Date Type Department Care Team (Late st Contact Info) Description 11/07/2020 11:30 AM CDT Office Visit [facility] Family Medicine [address] [place] [address] Ami Lowery PA [address] [place] [address] Encounter to establish care (Primary Dx); Obesity, morbid, BMI 40.0-49.9 (HCC); Left ear pain; Seasonal allergic rhinitis due to pollen; Tobacco use disorder; Episode of recurrent major depressive disorder, unspecified depression episode severity (HCC) Social History Tobacco Use Types Packs/Day Years Used Date Smoking Tobacco: Every Day PHQ-2 Answer Date Recorded PHQ-2 Total Score (If total score is 3 or more points, staff should administer the PHQ-9) 0 11/07/2020 Comments No Sex and Gender Information Value Date Recorded Sex Assigned at Not on file 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 Gender Identity Not on file Sexual Orientation Not on file Occupation Industry Job Start Date Job End Date [employer] Not on file Not on file Not on file documented as of this encounter Last Filed Vital Signs Vital Sign Reading Time Taken Comments Blood Pressure 110/70 11/07/2020 11:25 AM CDT Pulse 53 11/07/2020 11:25 AM CDT Temperature 36.4 ??C (97.5 ??F) 11/07/2020 11:25 AM C DT Respiratory Rate - - Oxygen Saturation 99% 11/07/2020 11:25 AM CDT Inhaled Oxygen Concentration - - Weight 126 kg (277 lb 12.8 oz) 11/07/2020 11:25 AM CDT Height 175.3 cm (5' 9 ) 11/07/2020 11:25 AM CDT Body Mass Index 41.02 11/07/2020 11:25 AM CDT documented in this encounter Ordered Prescriptions Prescription Sig Dispense Quantity Refills Last Filled Start Date End Date escitalopram (LEXAPRO) 10 mg tabletIndications: Episode of recurrent major depressive disorder, unspecified depression episode severity (HCC) Take 1 tablet (10 mg total) by mouth daily for 10 days 10 tablet 11/07/2020 1 buPROPion XL (WELLBUTRIN XL) 150 mg 24 hr tabletIndications: Tobacco use disorder,Episode of recurrent major depressive disorder, unspecified depression episode severity (HCC) Take 1 tablet (150 mg total) by mouth every morning 30 tablet 5 11/07/2020 1 loratadine (CLARITIN) 10 mg tabletIndications: Left ear pain,Seasonal allergic rhinitis due to pollen Take 1 tablet (10 mg total) by mouth daily 30 tablet 2 11/07/2020 1 methylPREDNISolone (MEDROL DOSEPACK) 4 mg DosepackIndication s:Left ear pain,Seasonal allergic rhinitis due to pollen Take as directed on package. 21 tablet 11/07/2020 1 documented in this encounter Progress Notes * Ami Tian PA - 11/07/2020 11:30 AM CDT Images from the original note were not included. 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 Had pain in the left ear the other night, pain down the jaw. Ear problems and PE tubes as a child. About 3y ago had pain in the left ear, lost her hearing for several months and had to go to ENT. Worried about weight. Highest 317lbs, can't get below 260. Has been overweight x 14y. Working out, running and cardio and doing weights. Eating healthier. Has tried weight watchers in the past. Smoker x 10y. husb also smokes. Preeclampsia with first child, other two deliveries normal Allergies as of 11/07/2020 - Reviewed 11/07/2020 Allergen Reaction Noted ??? Dilaudid [hydromorphone] Shortness of breath 08/18/2020 ??? Other Rash 02/21/2012 ??? Penicillins Rash 08/18/2020 ??? Sulfa (sulfonamide antibiotics) Rash 08/18/2020 Outpatient Encounter Medications as of 11/07/2020 Medication Sig Dispense Refill ??? buPROPion XL (WELLBUTRIN XL) 150 mg 24 hr tablet Take 1 tablet (150 mg total) by mouth every morning 30 tablet 5 ??? escitalopram (LEXAPRO) 10 mg tablet Take 1 tablet (10 mg total) by mouth daily for 10 days 10 tablet 0 ??? loratadine (CLARITIN) 10 mg tablet Take 1 tablet (10 mg total) by mouth daily 30 tablet 2 ??? methylPREDNISolone (MEDROL DOSEPACK) 4 mg Dosepack Take as directed on package. 21 tablet 0 ??? [DISCONTINUED] escitalopram (LEXAPRO) 20 mg tablet Take 20 mg by mouth daily ??? [DISCONTINUED] HYDROcodone-acetaminophen (NORCO) 5-325 mg per tablet Take 1- 2 tablets by mouth every 4 (four) hours as needed for pain Do not exceed 8 tablets/day. (Patient not taking: Reported on 11/07/2020) 20 tablet 0 ??? [DISCONTINUED] naproxen (NAPROSYN) 500 mg tablet Take 1 tablet (500 mg total) by mouth 2 (two) times a day with meals (Patient not taking: Reported on 11/07/2020) 30 tablet 0 No facility-administered encounter medications on file as of 11/07/2020. Past Medical History: Diagnosis Date ??? Anxiety ??? Depression Past Surgical History: Procedure Laterality Date ??? GALLBLADDER SURGERY ??? [place] REMOVAL GALLBLADDER Cholecystectomy - (Added by TW Conv) ? ? VT REMOVAL OF TONSILS,<12 Y/O Tonsillectomy - (Added by TW Conv) Family History Problem Relation Age of Onset ??? Depression Mother ??? Diabetes Father ??? Hypertension Father ??? Depression Father Social History Socioeconomic History ??? Marital status: Spouse name: None ??? Number of children: None ??? Years of education: None ??? Highest education level: None Occupational History ??? Occupation: [employer] Tobacco Use ??? Smoking status: Current Every Day Smoker Substance and Sexual Activity ??? Alcohol use: None ??? Drug use: Never ??? Sexual activity: None Other Topics Concern ??? None Social History Narrative ??? None Social Determinants of Health Financial Resource Strain: ??? Difficulty of Paying Living Expenses: Not on file Food Insecurity: ??? Worried About Running Out of Food in the Last Year: Not on file ??? Ran Out of Food in the Last Year: Not on file Transportation Needs: ??? Lack of Transportation (Medical): Not on file ??? Lack of Transportation (Non-Medical): Not on file Physical Activity: ??? Days of Exercise per Week: Not on file ??? Minutes of Exercise per Session: Not on file Stress: ??? Feeling of Stress : Not on file Social Connections: ??? Frequency of Communication with Friends and Family: Not on file ??? Frequency of Social Gatherings with Friends and Family: Not on file ??? Attends Buddhism Services: Not on file ??? Active Member of Clubs or Organizations: Not on file ??? Attends Club or Organization Meetings: Not on file ??? Marital Status: Not on file Intimate Partner Violence: ??? Fear of Current or Ex-Partner: Not on file ??? Emotionally Abused: Not on file ??? Physically Abused: Not on file ??? Sexually Abused: Not on file Review of Systems Constitutional: Negative for fatigue, fever and unexpected weight change. HENT: Positive for ear pain, rhinorrhea and sneezing. Negative for congestion, ear discharge, hearing loss, sinus pressure, sore throat and tinnitus. Respiratory: Negative for cough, chest tightness and shortness of breath. Cardiovascular: Negative for chest pain and palpitations. Gastrointestinal: Negative for abdominal pain. Genitourinary: Negative for difficulty urinating and dysuria. Musculoskeletal: Negative for arthralgias and back pain. Skin: Negative for color change. Neurological: Negative for dizziness. Hematological: Does not bruise/bleed easily. Psychiatric/Behavioral: Negative for confusion. The patient is not nervous/anxious. Vitals: 11/07/20 1125 BP: 110/70 BP Location: Left arm Patient Position: Sitting Pulse: 53 Temp: 36.4 ??C (97.5 ??F) SpO2: 99% Weight: 126 kg (277 lb 12.8 oz) Height: 175.3 cm (5' 9 ) Physical Exam Vitals and nursing note reviewed. Constitutional: General: She is not in acute distress. Appearance: Normal appearance. She is normal weight. She is not ill-appearing or toxic-appearing. HENT: Head: Normocephalic and atraumatic. Right Ear: Tympanic membrane, ear canal and external ear normal. Left Ear: Tympanic membrane, ear canal and external ear normal. Ears: Comments: Mild tenderness to tmj with opening/closing, no clicks Eyes: Extraocular Movements: Extraocular movements intact. Cardiovascular: [...] Diagnoses and all orders for this visit: Encounter to establish care (Z76.89) (Primary) Assessment & Plan: Retrieve records from previous pcp Orders: - CBC with auto differential; Future - Comprehensive metabolic panel; Future - Lipid panel; Future - Hemoglobin A1c; Future - TSH; Future - T4, free; Future Obesity, morbid, BMI 40.0-49.[address] ([facility]) (E66.01) Assessment & Plan: Obesity is unchanged. Discussed the patient's BMI. The BMI is above average. BMI management plan is completed. BMI Follow-up includes: nutrition counseling, exercise counseling and education provided.Obesity isunchanged. Discussed the patient's BMI. The BMI is above average. BMI management plan is completed. BMI Follow-up includes: nutrition counseling, exercise counseling and education provided. Orders: - CBC with auto differential; Future - Comprehensive metabolic panel; Future - Lipid panel; Future - Hemoglobin A1c; Future - TSH; Future - T4, free; Future Left ear pain (H92.02) Assessment & Plan: Discussed potential etiologies, including tmj Orders: - methylPREDNISolone (MEDROL DOSEPACK) 4 mg Dosepack; Take as directed on package. - loratadine (CLARITIN) 10 mg tablet; Take 1 tablet (10 mg total) by mouth daily Seasonal allergic rhinitis due to pollen (J30.1) Assessment & Plan: Add claritin qd Orders: - methylPREDNISolone (MEDROL DOSEPACK) 4 mg Dosepack; Take as directed on package. - loratadine (CLARITIN) 10 mg tablet; Take 1 tablet (10 mg total) by mouth daily Tobacco use disorder (F17.200) - buPROPion XL (WELLBUTRIN XL) 150 mg 24 hr tablet; Take 1 tablet (150 mg total) by mouth every morning Episode of recurrent major depressive disorder, unspecified depression episode severity (HCC) (F33.9) Assessment & Plan: Taper lexapro due to weight gain, will start wellbutrin. Advised to er if having s/h ideations. Orders: - buPROPion XL (WELLBUTRIN XL) 150 mg 24 hr tablet; Take 1 tablet (150 mg total) by mouth every morning - escitalopram (LEXAPRO) 10 mg tablet; Take 1 tablet (10 mg total) by mouth daily for 10 days Orders Placed This Encounter ??? CBC with auto differential Standing Status: Future Number of Occurrences: 1 Standing Expiration Date: 11/07/2021 ??? Comprehensive metabolic panel Standing Status: Future Number of Occurrences: 1 Standing Expiration Date: 11/07/2021 ??? Lipid panel Standing Status: Future Number of Occurrences: 1 Standing Expiration Date: 11/07/2021 ??? Hemoglobin A1c Standing Status: Future Number of Occurrences: 1 Standing Expiration Date: 11/07/2021 ??? TSH Standing Status: Future Number of Occurrences: 1 Standing Expiration Date: 11/07/2021 ??? T4, free Standing Status: Future Number of Occurrences: 1 Standing Expiration Date: 11/07/2021 ??? methylPREDNISolone (MEDROL DOSEPACK) 4 mg Dosepack Sig: Take as directed on package. Dispense: 21 tablet Refill: 0 ??? loratadine (CLARITIN) 10 mg tablet Sig: Take 1 tablet (10 mg total) by mouth daily Dispense: 30 tablet Refill: 2 ??? buPROPion XL (WELLBUTRIN XL) 150 mg 24 hr tablet Sig: Take 1 tablet (150 mg total) by mouth every morning Dispense: 30 tablet Refill: 5 ??? escitalopram (LEXAPRO) 10 mg tablet Sig: Take 1 tablet (10 mg total) by mouth daily for 10 days Dispense: 10 tablet Refill: 0 CHELSI Turner documented in this encounter Miscellaneous Notes * Assessment & Plan Note - Ami Tian PA - 11/07/2020 2:30 PM CDT Associated Problem(s): Episode of recurrent major depressive disorder (HCC) Taper lexapro due to weight gain, will start wellbutrin. Advised to er if having s/h ideations. * Assessment & Plan Note - Ami Tian PA - 11/07/2020 2:30 PM CDT Associated Problem(s): Seasonal allergic rhinitis due to pollen Add claritin qd * Assessment & Plan Note - Ami Tian PA - 11/07/2020 2:30 PM CDT Associated Problem(s): Encounter to establish care (Resolved 12/05/2020) Retrieve records from previous pcp * Assessment & Plan Note - Ami Tian PA - 11/07/2020 2:29 PM CDT Associated Problem(s): Left ear pain (Resolved 01/17/2021) Discussed potential etiologies, including tmj * Assessment & Plan Note - Cha Huynh MA - 11/07/2020 11:28 AM CDTAssociated Problem(s): Obesity, morbid, BMI 40.0-49.9 (HCC) Obesity is unchanged. Discussed the patient's BMI. The BMI is above average. BMI management plan is completed. BMI Follow-up includes: nutrition counseling, exercise counseling and education provided.Obesity isunchanged. Discussed the patient's BMI. The BMI is above average. BMI management plan is completed. BMI Follow-up includes: nutrition counseling, exercise counseling and education provided. documented in this encounter Plan of Treatment Not on file documented as of this encounter Procedures Procedure Name Priority Date/Time Associated Diagnosis Comments CBC WITH AUTO DIFFERENTIAL Routine 11/14/2020 8:09 AM CDT Encounter to establish care Obesity, morbid, BMI 40.0-49.9 (HCC) TSH Routine 11/14/2020 8:09 AM CDT Encounter to establish care Obesity, morbid, BMI 40.0-49.9 (HCC) T4, FREE Routine 11/14/2020 8:09 AM CDT Encounter to establish care Obesity, morbid, BMI 40.0-49.9 (HCC) HEMOGLOBIN A1C Routine 11/14/2020 8:09 AM CDT Encounter to establish care Obesity, morbid, BMI 40.0-49.9 (HCC) LIPID PANEL Routine 11/14/2020 8:09 AM CDT Encounter to establish care Obesity, morbid, BMI 40.0-49.9 (HCC) COMPREHENSIVE METABOLIC PANEL Routine 11/14/2020 8:09 AM CDT Encounter to establish care Obesity, morbid, BMI 40.0-49.9 (HCC) documented in this encounter Results * T4, free (11/14/2020 8:09 AM CDT) Free T4 1.1 0.8 - 1.8 ng/dL [facility] Blood specimen (specimen) 11/14/2020 8:09 AM CDT 11/14/2020 8:10 AM CDT Narrative [facility] - 11/15/2020 4:35 AM CDT FASTING:YES FASTING: YES Ami GAGNON LAB BLOOD ORDERABLES Final Result Performing Organization Address [facility] de Phone Number [facility] [address] [place] [address] * TSH (11/14/2020 8:09 AM CDT) Pathologist [facility] TSH 1.92 mIU/L [facility] Comment: ?Reference Range ?> or = 20 Years ??0.40-4.50 ? Ranges ?First trimester ?0.26-2.66 ?Second trimester ?? 0.55-2.73 ?Third trimester ?0.43-2.91 Blood specimen (specimen) 11/14/2020 8:09 AM CDT 11/14/2020 8:10 AM CDT Narrative [facility] - 11/15/2020 4:35 AM CDT FASTING:YES FASTING: YES Ami GAGNON LAB BLOOD ORDERABLES Final Result Performing Organization Address [facility] Co de Phone Number [facility] [address] [place] [address] * Hemoglobin A1c (11/14/2020 8:09 AM CDT) Hgb A1C 5.0 <5.7 % of total Hgb [facility] (specimen) 11/14/2020 8:09 AM CDT 11/14/2020 8:10 AM CDT Narrative [facility] - 11/15/2020 4:35 AM CDT FASTING:YES FASTING: YES Ami GAGNON LAB BLOOD ORDERABLES Final Result [facility] [address] [place] [address] * (ABNORMAL) Lipid panel (11/14/2020 8:09 AM CDT) Cholesterol 143 <200 mg/dL [facility] HDL 45(L) > OR = 50 mg/dL [facility] Triglycerides 88 <150 mg/dL [facility] LDL 81 mg/dL (calc) [facility] Comment: Reference range: <100 Desirable range <100 mg/dL for primary prevention; ?? <70 mg/dL for patients with CHD or diabetic patients with > or = 2 CHD risk factors. LDL-C is now calculated using the Chapito-Henry calculation, which is a validated novel method providing better accuracy than the Friedewald equation in the estimation of LDL-C. Chapito GERARD et al. JORDEN. 2013;310(19): 1165-6814 (http://education.ChoiceStream.Browntape/faq/PIH649) Chol/HDL ratio 3.2 <5.0 (calc) [facility] Non-HDL, (LDL+VLDL) 98 <130 mg/dL (calc) [facility] Comment: For patients with diabetes plus 1 major ASCVD risk factor, treating to a non-HDL-C goal of <100 mg/dL (LDL-C of <70 mg/dL) is considered a therapeutic option. Blood specimen (specimen) 11/14/2020 8:09 AM CDT 11/14/2020 8:10 AM CDT Narrative [facility] - 11/15/2020 4:35 AM CDT FASTING:YES FASTING: YES mAi GAGNON LAB BLOOD ORDERABLES Final Result [facility] [address] [id number] * (ABNORMAL) Comprehensive metabolic panel (11/14/2020 8:09 AM CDT) Pathologist [facility] Glucose 92 65 - 99 mg/dL [facility] Comment: ? Fasting reference interval BUN 13 7 - 25 mg/dL [facility] Creatinine 0.87 0.50 - 1.10 mg/dL [facility] eGFR NON-AFR. ROMANIAN 87 > OR = 60 mL/min/1. 73m2 [facility] EGFR 101 > OR = 60 mL/min/1. 73m2 [facility] BUN/creat ratio NOT APPLICABLE 6 - 22 (calc) [facility] Sodium 140 135 - 146 mmol/L [facility] Potassium, pl 4.3 3.5 - 5.3 mmol/L [facility] Chloride 108 98 - 110 mmol/L [facility] CO2 25 20 - 32 mmol/L [facility] Calcium 9.5 8.6 - 10.2 mg/dL [facility] Protein, sr 5.9(L) 6.1 - 8.1 g/dL [facility] Albumin 3.9 3.6 - 5.1 g/dL [facility] GLOBULIN 2.0 1.9 - 3.7 g/dL (calc) [facility] Alb/glob ratio 2.0 1.0 - 2.5 (calc) [facility] Bilirubin, total 0.2 0.2 - 1.2 mg/dL [facility] Alk phos 64 31 - 125 U/L [facility] AST 11 10 - 30 U/L [facility] ALT (SGPT) 13 6 - 29 U/L [facility] Blood specimen (specimen) 11/14/2020 8:09 AM CDT 11/14/2020 8:10 AM CDT Narrative [facility] - 11/15/2020 4:35 AM CDT FASTING:YES FASTING: YES Ami GAGNON LAB BLOOD ORDERABLES Final Result [facility] [address] [id number] * CBC with auto differential (11/14/2020 8:09 AM CDT) WBC 6.6 3.8 - 10.8 Thousand/u L [facility] RBC, POC 4.83 3.80 - 5.10 Million/uL [facility] Hgb 13.8 11.7 - 15.5 g/dL [facility] Hct 40.9 35.0 - 45.0 % [facility] MCV 84.7 80.0 - 100.0 fL [facility] MCH 28.6 27.0 - 33.0 pg [facility] MCHC 33.7 32.0 - 36.0 g/dL [facility] Rdw 13.1 11.0 - 15.0 % [facility] Platelets 205 140 - 400 Thousand/u L [facility] MPV 10.5 7.5 - 12.5 fL [facility] Neutrophils, abs 3,703 1,500 - 7,800 cells/uL [facility] Lymphocytes, abs 2,132 850 - 3,900 cells/uL [facility] Monocyte abs 422 200 - 950 cells/uL [facility] Eosinophils, abs 310 15 - 500 cells/uL [facility] Basophils, abs 33 0 - 200 cells/uL [facility] Neutrophils 56.1 % [facility] Lymphocyte pct 32.3 % [facility] Monocytes 6.4 % [facility] Eosinophils 4.7 % [facility] Basophils 0.5 % [facility] Blood specimen (specimen) 11/14/2020 8:09 AM CDT 11/14/2020 8:10 AM CDT Narrative [facility] - 11/15/2020 4:35 AM CDT FASTING:YES FASTING: YES Ami GAGNON LAB BLOOD ORDERABLES Final Result [facility] [address] [place] [address] documented in this encounter Visit Diagnoses Diagnosis Encounter to establish care- Primary Obesity, morbid, BMI 40.0-49.9 (HCC) Left ear pain Unspecified otalgia Seasonal allergic rhinitis due to pollen Tobacco use disorder Episode of recurrent major depressive disorder, unspecified depression episode severity (HCC) documented in this encounter Discontinued Medications Medication Sig Discontinue Reason Start Date End Da te naproxen (NAPROSYN) 500 mg tablet Take 1 tablet (500 mg total) by mouth 2 (two) times a day with meals 08/18/2020 11/07/2020 HYDROcodone-acetaminophe n (NORCO) 5-325 mg per tabletIndications:Pain Take 1-2 tablets by mouth every 4 (four) hours as needed for pain Do not exceed 8 tablets/day. 08/18/2020 11/07/2020 escitalopram (LEXAPRO) 20 mg tablet Take 20 mg by mouth daily 08/03/2020 11/07/2020 documented as of this encounter Historical Medications * This list may reflect changes made after this encounter. escitalopram (LEXAPRO) 20 mg tablet Take 20 mg by mouth daily 08/03/2020 11/07/2020 added in this encounter Care Teams Perishable Fruit Inspector Relationship Specialty Start Date End Date Ami Lowery PA PCP - General Stone Splitter 11/07/20 documented as of this encounter
--- OUTSIDE RECORDS SUMMARY | 2024-03-09 20:19 | XMS_ITS | Encounter Summary ---
Author Organization [facility] Address [address] [address] Care Team Providers Care Lifter/Driver Name Role Phone Ami Lowery Primary Care Provider [phone]- [phone] Reason for Visit * Reason Comments COVID-19 EVALUATION Covid pcr per PCP Encounter Details Date Type Department Care Team (Latest Contact Info) Description 09/01/2021 11:30 AM CDT Clinical Support [facility] Outpatient Center [address] [phone] Encounter for screening for COVID-19 (Primary Dx) Social History Tobacco Use Types [...] points, staff should administer the PHQ-9) 0 09/01/2021 Comments No Sex and Gender Information Value Date Recorded Sex Assigned at Not on file 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 documented in this encounter Plan of Treatment Not on file documented as of this encounter Results * Influenza A/B, RSV, and COVID-19 PCR Nasopharyngeal (09/01/2021 11:37 AM CDT) COVID-19 RNA Negative Negative [facility] Influenza A RNA Negative Negative [facility] Influenza B RNA Negative Negative [facility] RSV RNA Negative Negative [facility] Comment: Interpretive data: This test is performed using the Purple Binder Xpert Xpress CoV-2/Flu/RSV plus assay. This is [...] AM CDT 09/01/2021 5:35 PM CDT Narrative [facility] - 09/01/2021 7:01 PM CDT Is the Patient experiencing symptoms consistent with COVID?->Yes Date of Symptom Onset->08/30/21 Reason for testing?->Symptomatic Known exposure to confirmed or suspected COVID-19 case?->No Is the patient experiencing any symptoms consistent with COVID (eg. Fever, cough, shortness of breath)?->Yes What is the reason for testing?->Symptoms of COVID-19 in low-risk group (Batched) us Melissa Romero NP LAB MICROBIOLOGY - GENERAL ORDYuki [place] Final Result [facility] [address] Department [place] [address] documented in this encounter Visit Diagnoses Diagnosis Encounter for screening for COVID-19- Primary Encounter for screening for COVID-19 documented in this encounter Additional Health Concerns Infection Onset Date Last Indicated Resolved Time COVID: Suspected 09/01/2021 09/01/2021 09/01/2021 7:02 PM CDT documented as of this encounter Care Teams Lifter/Driver Relationship Specialty Start Date End Date Ami Lowery PA PCP - General Roller Coaster Engineer 11/07/20 documented as of this encounter
--- OUTSIDE RECORDS SUMMARY | 2024-03-09 20:19 | XMS_ITS | Encounter Summary ---
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 Your blood work all looks good/normal. The Ddimer, which was the screening lab for pulmonary embolism, returned normal/negative. This means the back pain/SOB is unlikely due to a blood clot to the lungs!! Your kidney function, liver function, electrolytes and blood count are normal. This means you are probably fighting a lower respiratory infection-- I am hoping you are seeing a little improvement with the Steroids, antibiotic and albuterol inhaler. Please keep your appointment on Saturday with Ami so she can listen to you. Remember, if your symptoms get worse before then,please go to the ER. Feel free to contact the office thru My Chart (which is only checked during office hours so don't use for URGENT/EMERGENT concerns) or by phone if you have any other questions or concerns. Taisha Jimenes PA-C documented in this encounter Plan of Treatment Not on file documented as of this encounter Procedures Procedure Name Priority Date/Time Associated Diagnosis Comments EGFR Routine 09/01/2021 11:43 AM CDT Cough SOB (shortness of breath) DIFFERENTIAL AUTO Routine 09/01/2021 11: 43 AM CDT Cough SOB (shortness of breath) CBC WITH AUTO DIFFERENTIAL Routine 09/01/2021 11:43 AM CDT Cough SOB (shortness of breath) D-DIMER, QUANTITATIVE Routine 09/01/2021 11:43 AM CDT SOB (shortness of breath) COMPREHENSIVE METABOLIC PANEL Routine 09/01/2021 11:43 AM CDT Cough SOB (shortness of breath) documented in this encounter Results * eGFR (09/01/2021 11:43 AM CDT) [facility] eGFR 97 mL/min/1. 73 m2 ANA SLAUGHTER Comment: Interpretive Data Reference Interval Normal ?>/= 90 mL/min/1.73m2 Mildly decreased* ? 60 - 89 mL/min/1.73m2 Mildly to moderately decreased ?45 - 59 mL/min/1.73m2 Moderately to severely decreased ??30 - 44 mL/min/1.73m2 Severely decreased ?15 - 29 mL/min/1.73m2 Kidney Failure ?< 15 ??mL/min/1.73m2 *Relative to young adult level Estimated glomerular filtration rate is determined by the 2020 CKD-EPI equation recommended by the National Kidney Foundation (A Unifying Approach to GFR Estimation: Recommendations of the NKF-ASK Task Force on Reassessing the Inclusion of Race in Diagnosing Kidney Disease, JASN 2020). The CKD-EPI equation should not be used for patients with unstable renal function and has not been validated in children and those over 70. Current interpretive data was last reviewed 2020. Blood 09/01/2021 11:4 3 AM CDT 09/01/2021 9:57 PM CDT Taisha GAGNON LAB BLOOD ORDERABLES Final Result [facility] [id number] Department [place] [address] * Differential, auto (09/01/2021 11:43 AM CDT) Neutrophil abs 3.2 1.7 - 6.5 K/cumm [facility] Imm gran abs 0.0 0.0 - 0.1 K/cumm [facility] Lymphocyte abs 1.7 0.8 - 3.3 K/cumm [facility] Monocyte abs 0.4 0.2 - 0.8 K/cumm [facility] Eosinophil abs 0.3 0.0 - 0.5 K/cumm [facility] Basophil abs 0.0 0.0 - 0.1 K/cumm [facility] Neutrophil pct 56.4 % [facility] Comment: Interpretive Data Percent cell count reference ranges are not reported, since discordance with absolute values may lead to misinterpretation of CBC data. Current Interpretive Data was last revised on 2017. Imm gran pct 0.3 % [facility] Comment: Interpretive Data Percent cell count reference ranges are not reported, since discordance with absolute values may lead to misinterpretation of CBC data. Current Interpretive Data was last revised on 2017. Lymphocyte pct 29.9 % [facility] CH Comment: Interpretive Data Percent cell count reference ranges are not reported, since discordance with absolute values may lead to misinterpretation of CBC data. Current Interpretive Data was last revised on 2017. Monocyte pct 7.5 % [facility] CH Comment: Interpretive Data Percent cell count reference ranges are not reported, since discordance with absolute values may lead to misinterpretation of CBC data. Current Interpretive Data was last revised on 2017. Eosinophil pct 5.4 % [facility] Comment: Interpretive Data Percent cell count reference ranges are not reported, since discordance with absolute values may lead to misinterpretation of CBC data. Current Interpretive Data was last revised on 2017. Basophil pct 0.5 % [facility] Comment: Interpretive Data Percent cell count reference ranges are not reported, since discordance with absolute values may lead to misinterpretation of CBC data. Current Interpretive Data was last revised on 2017. Blood 09/01/2021 11:4 3 AM CDT 09/01/2021 7:54 PM CDT Taisha GAGNON LAB BLOOD ORDERABLES Final Result [facility] [address] Department [place] [address] * Comprehensive metabolic panel (09/01/2021 11:43 AM CDT) Sodium 140 135 - 145 mmol/L [facility] Potassium, pl 4.4 3.3 - 4.9 mmol/L [facility] Chloride 108 97 - 110 mmol/L [facility] CO2 22 22 - 32 mmol/L [facility] Anion gap 10 2 - 15 mmol/L [facility] BUN 10 8 - 25 mg/dL [facility] Creatinine 0.81 0.60 - 1.10 mg/dL [facility] Glucose 102 70 - 199 mg/dL [facility] Comment: Interpretive Data Fasting glucose >/= 126 mg/dl is diagnostic for diabetes. ?? Fasting is defined as no caloric intake for at least 8 hours. Fasting glucose between 100 mg/dl to 125 mg/dl is diagnostic of prediabetes. In a patient with classic symptoms of hyperglycemia or hyperglycemic crisis, a random glucose >/= 200 mg/dl is diagnostic for diabetes. In the absence of unequivocal hyperglycemia, results should be confirmed by repeat testing. The classification and Diagnosis of Diabetes Diabetes Care 2017;40 (Suppl. 1):S11. Current interpretive data was last revised 2017. Calcium 9.1 8.5 - 10.3 mg/dL [facility] Bilirubin, total 0.2 0.1 - 1.2 mg/dL [facility] Protein, pl 6.5 6.5 - 8.5 g/dL [facility] Albumin 4.1 3.5 - 5.0 g/dL [facility] Alk phos 87 40 - 130 Units/L [facility] ALT 17 7 - 45 Units/L [facility] AST 21 10 - 45 Units/L [facility] Blood 09/01/2021 11:4 3 AM CDT 09/01/2021 7:54 PM CDT Taisha GAGNON LAB BLOOD ORDERABLES Final Result [facility] [address] Department [place] [address] * (ABNORMAL) CBC with auto differential (09/01/2021 11:43 AM CDT) WBC 5.7 3.8 - 9.9 K/cumm [facility] Hgb 13.4 11.9 - 15.5 g/dL [facility] Hct 42.1 35.6 - 45.5 % [facility] Plt 233 150 - 400 K/cumm [facility] MPV 10.1 9.1 - 12.3 fL [facility] RBC 4.88 3.90 - 5.20 M/cumm [facility] MCV 86.3 81.3 - 96.4 fL [facility] MCH 27.5 27.1 - 33.3 pg [facility] MCHC 31.8(L) 32.3 - 35.7 g/dL [facility] RDW CV 13.0 11.1 - 14.9 % [facility] RDW SD 40.3 35.7 - 48.1 fL [facility] NRBC abs 0.00 0.00 - 0.01 K/cumm [facility] Blood 09/01/2021 11:4 3 AM CDT 09/01/2021 7:54 PM CDT Taisha GAGNON LAB BLOOD ORDERABLES Final Result Performing Organization Address [facility] Co de Phone Number ANA [address] Department [place] [address] * D-dimer, quantitative (09/01/2021 11:43 AM CDT) D-Dimer 232 <=499 ng/mL FEU [facility] Comment: Interpretive data FDA approved the D-dimer, in conjunction with a low or moderate pretest probability score, to exclude venous thromboembolic events (VTE) (PE and DVT) in outpatients when the D-dimer result is < 500 ng/ml FEU. ?? Evidence supports using an age-adjusted D-dimer cut-off for outpatients older than 50 (age x 10) to improve specificity without sacrificing sensitivity. Example: age 68, VTE cut-off 680 ng/ml FEU. References; Lexii HT et al. Brit Med J. 2013;346:f2492. Tania et al. Annals Int Med. 2015;163:701-11. Current interpretive data was last revised on 2019. Blood 09/01/2021 11:4 3 AM CDT 09/01/2021 7:54 PM CDT Taisha GAGNON LAB BLOOD ORDERABLES Final Result Performing Organization Address City/[facility]/ZIP Co de Phone Number ANA SLAUGHTER [address] Department of Laboratories [place], [place] [phone] documented in this encounter Visit Diagnoses Diagnosis SOB (shortness of breath) Shortness of breath Cough documented in this encounter Care Teams Showcase Maker Relationship Specialty Start Date End Date Ami Lowery PA PCP - General Machine I Engraver 11/07/20 documented as of this encounter
--- OUTSIDE RECORDS SUMMARY | 2024-03-09 20:19 | XMS_ITS | Encounter Summary ---
Author Organization [facility] Address [address] [address] Care Team Providers Care Chemical Equipment Controller Name Role Phone Ami Lowery Primary Care Provider +1- [phone] Reason for Referral * Diagnostic Imaging (Routine) - Closed Specialty Diagnoses / Procedures Referred By Contac t Referred To Contact Diagnoses Cough SOB (shortness of breath) Procedures XR Chest Pa Lateral 2 Vw Taisha Jiemnes PA [address] [address] Phone: tel: fax: [address] [phone] Referral ID Status Reason Start Date Expiration Date Visits Re quested Visits Authorized [id number] Closed 09/01/2021 10/01/2022 1 1 Reason for Visit * Reason Comments Sick Visit Encounter Details Date Type Department Care Team (Late st Contact Info) Description 09/01/2021 10:15 AM CDT Telemedicine [facility] Family Medicine [address] [place] [address] Taisha Jimenes PA [address] [facility] [address] [place] [address] Cough (Primary Dx); SOB (shortness of breath) Social History Tobacco [...] on file 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 Gender Identity Not on file Sexual Orientation Not on file Occupation Industry Job Start Date Job End Date [employer] Not on file Not on file Not on file documented as of this encounter Last Filed Vital Signs Vital Sign Reading Time Taken Comments Blood Pressure - - Pulse - - Temperature - - Respiratory Rate - - Oxygen Saturation - - Inhaled Oxygen Concentration - - Weight 127 kg (280 lb) 09/01/2021 10:09 AM CDT Height 175.3 cm (5' 9 ) 09/01/2021 10:09 AM CDT Body Mass Index 41.35 09/01/2021 10:09 AM CDT documented in this encounter Ordered Prescriptions Prescription Sig Dispense Quantity Refills Last Filled Start Date End Date albuterol HFA (ProAir HFA) 90 mcg/actuation inhaler Inhale 2 puffs every 4 (four) hours as needed for wheezing or shortness of breath 8.5 g 09/01/2021 methylPREDNISolone (MEDROL DOSEPACK) 4 mg Dosepack Take as directed on package. 21 tablet 09/01/2021 doxycycline (VIBRAMYCIN) 100 mg capsule Take 1 tablet/capsule (100 mg total) by mouth 2 (two) times a day for 10 days 20 tablet/capsule 09/01/2021 2 documented in this encounter Progress Notes * Taisha Jimenes PA - 09/01/2021 10:15 AM CDT Images from the original note were not included. Subjective/Objective Patient ID: Gregoria Agee is a 36 y.o. female. Chief Complaint Sick Visit Shortness of Breath This is a new problem. The current episode started in the past 7 days. The problem occurs every fewminutes. The problem has been waxing and waning. The average episode lasts 0 minutes. Associated symptoms include chest pain, headaches and orthopnea. Pertinent negatives include no abdominal pain, cl audication, coryza, ear pain, fever, hemoptysis, leg pain, leg swelling, neck pain, PND, rash, rhinorrhea, sore throat, sputum production, swollen glands, syncope, vomiting or wheezing. Nothing aggravates the symptoms. This was a telemedicine visit with the patient which took place via real-time video connection with[employer]ap[employer] or [employer] During the visit, I was located in my [place], [place] office and the patientwas located at home in the [facility]. The patient visit started at 10:15 and ended at 10:38My total encounter time, spent on the day of service was 18 minutes which was spent in the activities documented in the note. This includes time spent prior to the visit and after the visit in directcare of the patient. This time does not include time spent in any separately reportable services. The patient has been informed that the [...] billed and/or responsible for any applicable copayments. 08/29 Chest was heavy/pressure. Mild cough, non- productive. NO wheezing but increased SOB with activity Some back pain at times. Ear pressure Did [facility] test and home test and both negative for COVID Symptoms seem to be stable, not getting worse. Had COVID in February and felt this pressure Review of Systems Constitutional: Negative for fever. HENT: Negative for ear pain, rhinorrhea and sore throat. Respiratory: Positive for shortness of breath. Negative for hemoptysis, sputum production and wheezing. Cardiovascular: Positive for chest pain and orthopnea. Negative for claudication, leg swelling, syncope and PND. Gastrointestinal: Negative for abdominal pain and vomiting. Musculoskeletal: Negative for neck pain. Skin: Negative for rash. Neurological: Positive for headaches. See HPI Vitals: 09/01/21 1009 Weight: 127 kg (280 lb) Height: 175.3 cm (5' 9 ) Physical Exam Vitals and nursing note reviewed. Constitutional: Appearance: Normal appearance. HENT: Head: Normocephalic and atraumatic. Eyes: Comments: Pupils are equal Pulmonary: Effort: Pulmonary effort is normal. Skin: General: Skin is dry. Neurological: Mental Status: She is alert. Psychiatric: Mood and Affect: Mood normal. Assessment/Plan Diagnoses and all orders for this visit: Cough (R05.9) (Primary) Assessment & Plan: Patient has had a persistent cough for the last 2-3 days. She has had shortness of breath associated with walking across the room and some back discomfort. She is not on control pills. Had history of COVID in February. Has some production of the cough. Will go ahead and retest COVID at the [facility] will lab. Will go ahead and check [...] increased shortness of breath if she begins tohave more chest pain or back pain she is to go to the ER immediately for further evaluation. Discussed possible diagnosis is not limited to bronchitis versus pneumonia versus PE and that we need to follow very closely. Encouraged her to remain off work until she is re-evaluated on Saturday at 3:00 p.m. with Ami Lowery PA-C Orders: - XR Chest Pa Lateral 2 Vw; Future - CBC with auto differential; Future - Comprehensive metabolic panel; Future SOB (shortness of breath) (R06.02) Assessment & Plan: Patient has had a persistent cough for the last 2-3 days. She has had shortness of breath associated with walking across the room and some back discomfort. She is not on control pills. Had history of COVID in February. Has some production of the cough. Will go ahead and retest COVID at the [facility] will lab. Will go ahead and check [...] increased shortness of breath if she begins tohave more chest pain or back pain she is to go to the ER immediately for further evaluation. Discussed possible diagnosis is not limited to bronchitis versus pneumonia versus PE and that we need to follow very closely. Encouraged her to remain off work until she is re-evaluated on Saturday at 3:00 p.m. with Ami Lowery PA-C Orders: - XR Chest Pa Lateral 2 Vw; Future - D-dimer, quantitative; Future - CBC with auto differential; Future - Comprehensive metabolic panel; Future Other orders - doxycycline (VIBRAMYCIN) 100 mg capsule; Take 1 tablet/capsule (100 mg total) by mouth 2 (two) times a day for 10 days - methylPREDNISolone (MEDROL DOSEPACK) 4 mg Dosepack; Take as directed on package. - albuterol HFA (ProAir HFA) 90 mcg/actuation inhaler; Inhale 2 puffs every 4 (four) hours as needed for wheezing or shortness of breath *This note is dictated using [employer] voice recognition software, variances in spelling and vocabulary are possible and unintentional.* Taisha Jimenes PA-C Cosigned by Arnel Bright MD at 09/02/2021 1:56 PM CDT documented in this encounter Miscellaneous Notes * Assessment & Plan Note - Taisha Jimenes PA - 09/01/2021 10:48 AM CDT Associated Problem(s): SOB (shortness of breath) Patient has had a persistent cough for the last 2-3 days. She has had shortness of breath associated with walking across the room and some back discomfort. She is not on control pills. Had history of COVID in February. Has some production of the cough. Will go ahead and retest COVID at the [facility] will lab. Will go ahead and check [...] increased shortness of breath if she begins tohave more chest pain or back pain she is to go to the ER immediately for further evaluation. Discussed possible diagnosis is not limited to bronchitis versus pneumonia versus PE and that we need to follow very closely. Encouraged her to remain off work until she is re-evaluated on Saturday at 3:00 p.m. with Ami Lowery PA-C * Assessment & Plan Note - Taisha Jimenes PA - 09/01/2021 10:41 AM CDT Associated Problem(s): Cough Patient has had a persistent cough for the last 2-3 days. She has had shortness of breath associated with walking across the room and some back discomfort. She is not on control pills. Had history of COVID in February. Has some production of the cough. Will go ahead and retest COVID at the [facility] will lab. Will go ahead and check [...] increased shortness of breath if she begins tohave more chest pain or back pain she is to go to the ER immediately for further evaluation. Discussed possible diagnosis is not limited to bronchitis versus pneumonia versus PE and that we need to follow very closely. Encouraged her to remain off work until she is re-evaluated on Saturday at 3:00 p.m. with Ami Lowery PA-C * Addendum Note - Winifred Hebert. - 09/01/2021 10:15 AM CDTAddended by: WINIFRED HEBERT on: 09/01/2021 11:42 AM Modules accepted: Orders documented in this encounter Plan of Treatment Not on file documented as of this encounter Results * XR Chest Pa Lateral 2 Vw (09/01/2021 11:52 AM CDT) Anatomical Region Laterality Modality Body, Chest N/A Digital Radiogra phy 09/01/2021 5:34 PM CDT Narrative 09/01/2021 5:34 PM CDT EXAM DESCRIPTION: ?? XR CHEST PA LATERAL 2 VIEWS REASON FOR STUDY: ?? cough ?? Pt complains of sob, cough, congestion for about 3 days. No surgery to heart, lungs, or chest. Pt is a smoker for about 10 years, smoking 1/4-1/2 PPD ?? TECHNIQUE: ?? Frontal ??and lateral radiographic views of the chest acquired. COMPARISON: 08/18/2020. FINDINGS: LUNGS/PLEURA: ?? No focal consolidation or pneumothorax. No pleural effusion. HEART/MEDIASTINUM: ?? Heart size is normal. Normal mediastinal and hilar contours. HARDWARE/LINES/TUBES: ?? None. BONES: ?? No acute findings. OTHER: ?? No other significant finding. IMPRESSION: ?? No acute cardiopulmonary abnormality. THIS IS AN ELECTRONICALLY VERIFIED FINAL REPORT 09/01/2021 5:34 PM - Electronically signed by ??Ruben Nuno M.D. CH D: ??09/01/2021 5:34 PM T: Report ID: [id number] Reading Location: ??[id number] Procedure Note Ruben Nuno Jr., MD - 09/01/2021 EXAM DESCRIPTION: XR CHEST PA LATERAL 2 VIEWS REASON FOR STUDY: cough Pt complains of sob, cough, congestion for about 3 days. No surgery toheart, lungs, or chest. Pt is a smoker for about 10 years, smoking 1/4-1/2 PPD TECHNIQUE: Frontal and lateral radiographic views of the chestacquired. COMPARISON: 08/18/2020. FINDINGS: LUNGS/PLEURA: No focal consolidation or pneumothorax. Nopleural effusion. HEART/MEDIASTINUM: Heart size is normal. Normal mediastinal and hilar contours. HARDWARE/LINES/TUBES: None. BONES: No acute findings. OTHER: No other significant finding. IMPRESSION: No acute cardiopulmonary abnormality. THIS IS AN ELECTRONICALLY VERIFIED FINAL REPORT 09/01/2021 5:34 PM - Electronically signed by Ruben Nuno M.D. T: Report ID: [id number] Reading Location: [place] [address] Taihsa GAGNON IMG XR PROCEDURES Final Re sult * D-dimer, quantitative (09/01/2021 11:43 AM CDT) D-Dimer 232 <=499 ng/mL FEU [facility] Comment: Interpretive data FDA approved the D-dimer, [...] 69, VTE cut-off 680 ng/ml FEU. References; Schouten HT et al. Brit Med J. 2013;346:f2492. Tania et al. Annals Int Med. 2015;163:701-11. Current interpretive data was last revised on 2019. Blood 09/01/2021 11:4 3 AM CDT 09/01/2021 7:54 PM CDT Taisha GAGNON LAB BLOOD ORDERABLES Final Result Performing Organization Address City/[facility] Co de Phone Number ANA SLAUGHTER [address] Department [employer] [place], [place] [id number] * (ABNORMAL) CBC with auto differential (09/01/2021 11:43 AM CDT) WBC 5.7 3.8 - 9.9 K/cumm [facility] Hgb 13.4 11.9 - 15.5 g/dL [facility] CH Hct 42.1 35.6 - 45.5 % [facility] CH Plt 233 150 - 400 K/cumm [facility] CH MPV 10.1 9.1 - 12.3 fL [facility] CH RBC 4.88 3.90 - 5.20 M/cumm [facility] CH MCV 86.3 81.3 - 96.4 fL [facility] CH MCH 27.5 27.1 - 33.3 pg [facility] CH MCHC 31.8(L) 32.3 - 35.7 g/dL [facility] CH RDW CV 13.0 11.1 - 14.9 % [facility] CH RDW SD 40.3 35.7 - 48.1 fL [facility] NRBC abs 0.00 0.00 - 0.01 K/cumm [facility] CH Blood 09/01/2021 11:4 3 AM CDT 09/01/2021 7:54 PM CDT Taisha GAGNON LAB BLOOD ORDERABLES Final Result Performing Organization Address City/[facility]/ZIP Co de Phone Number ANA SLAUGHTER [address] [place] [address] * Comprehensive metabolic panel (09/01/2021 11:43 AM CDT) Sodium 140 135 - 145 mmol/L [facility] CH Potassium, pl 4.4 3.3 - 4.9 mmol/L [facility] Chloride 108 97 - 110 mmol/L [facility] CH CO2 22 22 - 32 mmol/L [facility] CH Anion gap 10 2 - 15 mmol/L [facility] CH BUN 10 8 - 25 mg/dL [facility] Creatinine 0.81 0.60 - 1.10 mg/dL [facility] Glucose 102 70 - 199 mg/dL [facility] Comment: Interpretive Data Fasting glucose >/= 126 [...] 2017. Calcium 9.1 8.5 - 10.3 mg/dL [facility] Bilirubin, total 0.2 0.1 - 1.2 mg/dL [facility] Protein, pl 6.5 6.5 - 8.5 g/dL [facility] Albumin 4.1 3.5 - 5.0 g/dL [facility] Alk phos 87 40 - 130 Units/L [facility] CH ALT 17 7 - 45 Units/L [facility] CH AST 21 10 - 45 Units/L [facility] Blood 09/01/2021 11:4 3 AM CDT 09/01/2021 7:54 PM CDT Taisha GAGNON LAB BLOOD ORDERABLES Final Result [facility] [address] Department [place] [address] documented in this encounter Visit Diagnoses Diagnosis Cough- Primary SOB (shortness of breath) Shortness of breath Cough SOB (shortness of breath) Shortness of breath documented in this encounter Additional Health Concerns Infection Onset Date Last Indicated Resolved Time COVID: Suspected 09/01/2021 09/01/2021 09/01/2021 7:02 PM CDT documented as of this encounter Care Teams Chemical Equipment Controller Relationship Specialty Start Date End Date Ami Lowery PA PCP - General Professor Criminal Justice 11/07/20 documented as of this encounter
--- OUTSIDE RECORDS SUMMARY | 2024-03-09 20:19 | XMS_ITS | Encounter Summary ---
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 Gender Identity Not on file Sexual Orientation Not on file Occupation Industry Job Start Date Job End Date [employer] Not on file Not on file Not on file documented as of this encounter Plan of Treatment Not on file documented as of this encounter Visit Diagnoses Diagnosis Cough SOB (shortness of breath) Shortness of breath documented in this encounter Additional Health Concerns Infection Onset Date Last Indicated Resolved Time COVID: Suspected 09/01/2021 09/01/2021 09/01/2021 7:02 PM CDT documented as of this encounter Care Teams Bank Guard Relationship Specialty Start Date End Date Ami Lowery PA PCP - General Asset Protection Manager 11/07/20 documented as of this encounter
--- OUTSIDE RECORDS SUMMARY | 2024-03-09 20:19 | XMS_ITS | Encounter Summary ---
Author Organization [facility] Address [address] [address] Care Team Providers Care Comb Tender Name Role Phone Ami Lowery Primary Care Provider [phone]- [phone] Reason for Visit * Diagnostic Imaging (Routine) - Closed Specialty Diagnoses / Procedures Referred By Contac t Referred To Contact Diagnoses Cough SOB (shortness of breath) Procedures XR Chest Pa Lateral 2 Vw Taisha Jimenes PA [address] [facility] [address] [place] [address] Phone: tel: fax: [address] [address] Referral ID Status Reason Start Date Expiration Date Visits Re quested Visits Authorized [id number] Closed 09/01/2021 10/01/2022 1 1 Encounter Details Date Type Department Care Team (Latest Contact Info) Description 09/01/2021 12:[address]illary Procedure 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 Your culturestoday was also negative for COVID, RSV and FLU. The lab work is still pending. I hope you were able to sisal picker the medications at the pharmacy. I will be in touch as your labs become available -- if your symptoms worsen over the weekend, please consider the ER. Feel free to contact the office thru My Chart (these messages are checked ONLY during office hours)or by phone if you have any other questions or concerns. MAYRA AtkinsC documented in this encounter Plan of Treatment Not on file documented as of this encounter Procedures Procedure Name Priority Date/Time Associated Diagnosis Comments XR CHEST PA LATERAL 2 VIEWS Schedule Routine, Read Routine (OP Routine) 09/01/2021 11:52 AM CDT Cough SOB (shortness of breath) documented in this encounter Results * XR Chest Pa [...] PM - Electronically signed by ??Ruben Nuno M.D., [place] D: ??09/01/2021 5:34 PM T: Report ID: [id number] Reading Location: [id number] Procedure Note Ruben Nuno Jr., MD - [...] - Electronically signed by Ruben Nuno M.D. CH T: Report ID: [id number] Reading Location: [id number] [facility] XR PROCEDURES Final Re sult documented in this encounter Visit Diagnoses Diagnosis Cough SOB (shortness of breath) Shortness of breath documented in this encounter Additional Health Concerns Infection Onset Date Last Indicated Resolved Time COVID: Suspected 09/01/2021 09/01/2021 09/01/2021 7:02 PM CDT documented as of this encounter Care Teams Comb Tender Relationship Specialty Start Date End Date Ami Lowery PA PCP - General Wire Annealer 11/07/20 documented as of this encounter
--- OUTSIDE RECORDS SUMMARY | 2024-03-09 20:19 | XMS_ITS | Encounter Summary ---
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 Result [facility] documented in this encounter Visit Diagnoses Diagnosis Chest wall pain- Primary Painful respiration Tobacco abuse Tobacco use disorder documented in this encounter Administered Medications Inactive Administered Medications - up to 3 most recent administrations Medication Order MAR Action Action Date Dose Rate Site HYDROcodone-acetaminophen (NORCO) 5-325 mg per tablet 2 tablet 2 tablet, oral, Once, On Edna 08/18/20 at 2132, For 1 dose, Indications: PainIndications:Pain Given 08/18/2020 9:39 PM CDT 2 tablets ketorolac (TORADOL) intramuscular injection 60 mg 60 mg, intramuscular, Once, On Edna 08/18/20 at 1932, For 1 dose, Intramuscular Given 08/18/2020 7:42 PM CDT 60 mg Right Dorsogluteal/But tock LORazepam (ATIVAN) tablet 0.5 mg 0.5 mg, oral, Once, On Edna 08/18/20 at 2133, For 1 dose Given 08/18/2020 9:39 PM CDT 0.5 mg documented in this encounter Active and Recently Administered Medications Times are shown in CDT. Scheduled Medication Order 08/17/2020 08/18/2020 08/19/2020 HYDROcodone-acetaminophen (NORCO) 5-325 mg per tablet 2 tablet (COMPLETED) 2 tablet, oral, Once, On Edna 08/18/20 at 2132, For 1 dose, Indications: Pain 2138 (Given - Provider: Fátima Aguilera, YOGESH) ketorolac (TORADOL) intramuscular injection 60 mg (COMPLETED) 60 mg, intramuscular, Once, On Edna 08/18/20 at 1932, For 1 dose, Intramuscular 1941 (Given - Provider: Humberto Mccallum, YOGESH) LORazepam (ATIVAN) tablet 0.5 mg (COMPLETED) 0.5 mg, oral, Once, On Edna 08/18/20 at 2133, For 1 dose 2138 (Given - Provider: Fátima Aguilera, YOGESH) documented in this encounter Care Teams Miner Relationship Specialty Start Date End Date No, Physician PCP - General 08/18/20 11/06/20 documented as of this encounter
--- OUTSIDE RECORDS SUMMARY | 2024-03-09 20:19 | XMS_ITS | Encounter Summary ---
Author Organization [facility] Address [address] [place] [id number] Care Team Providers Care Manager Relationship Name Role Phone Ami Lowery Primary Care Provider +1- [phone] Reason for Visit * Reason Comments Follow-up Discuss meds Encounter Details Date Type Department Care Team (Late st Contact Info) Description 05/18/2021 9:00 AM CDT Office Visit [facility] Family Medicine [address] [place] [phone] Ami Lowery PA [address] [place] [address] Anxiety (Primary Dx); Episode of recurrent major depressive disorder, unspecified depression episode severity (HCC); Obesity, morbid, BMI 40.0-49.9 (HCC); Morbid obesity with BMI of 40.0-44.9, adult (HCC); History of COVID-19; H/O motion sickness Social History Tobacco Use Types Packs/Day Years Used Date Smoking Tobacco: Former Cigarettes Q uit: 11/28/2020 Smokeless Tobacco: Never AUDIT-C Answer Date Recorded Q1: How often do you have a drink containing alc ohol? Monthly or less 05/18/2021 Q2: How many drinks containi ng alcohol do you have on a typical day when you are drinking? 1 or 2 05/18/2021 Frequency of Binge Drinking Not on file 04/26 PHQ-2 Answer Date Recorded PHQ-2 Total Score (If total score is 3 or more points, staff should administer the PHQ-9) 0 05/18/2021 Comments No Sex and Gender Information Value Date Recorded Sex Assigned at Not on file Legal Sex Female 6:08 PM STAY CUTTER Gender Identity Not on file Sexual Orientation Not on file Occupation Industry Job Start Date Job End Date [employer] Not on file Not on file Not on file documented as of this encounter Last Filed Vital Signs Vital Sign Reading Time Taken Comments Blood Pressure 108/74 05/18/2021 9:02 AM CDT Pulse 67 05/18/2021 9:02 AM CDT Temperature 36.7 ??C (98 ??F) 05/18/2021 9:02 AM CDT Respiratory Rate - - Oxygen Saturation 99% 05/18/2021 9:02 AM CDT Inhaled Oxygen Concentration - - Weight 125.1 kg (275 lb 11.2 oz) 05/18/2021 9:02 AM CDT Height - - Body Mass Index 40.71 01/17/2021 8:37 AM STAY CUTTER documented in this encounter Ordered Prescriptions Prescription Sig Dispense Quantity Refills Last Filled Start Date End Date buPROPion XL (WELLBUTRIN XL) 300 mg 24 hr tabletIndications: Anxiety,Episode of recurrent major depressive disorder, unspecified depression episode severity (HCC) Take 1 tablet (300 mg total) by mouth every morning 90 tablet 3 05/18/2021 busPIRone (BUSPAR) 7.5 mg tabletIndications: Generalized Anxiety Disorder Take 1 tablet (7.5 mg total) by mouth 2 (two) times a day 60 tablet 11 05/18/2021 scopolamine 1 mg over 3 days patch [address] 1 patch on the skin every third day as needed (nausea) 4 patch 2 05/18/2021 2 metFORMIN (GLUCOPHAGE) 500 mg tablet Take 1 tablet (500 mg total) by mouth 2 (two) times a day with meals 60 tablet 11 05/18/2021 2 documented in this encounter Progress Notes * Ami Lowery PA - 05/18/2021 9:00 AM CDT Images from the original note were not included. Chief Complaint Follow-up (Discuss meds) HPI Here for follow-up of weight management, anxiety and depression. Had covid in February, quit smoking. Notes that it hurt to breathe with illness, however she has recovered well since then and denies symptoms at this time. Weight watchers in February, going to the gym and going before work. Has lost 20lbs intentionally. Still struggling with anxiety, mood is better. Stress at work and home. Wondering about increasing her BuSpar. She is soon to go on a cruise and has motion sickness. She wonders about something to help with symptoms. Allergies as of 05/18/2021 - Reviewed 05/18/2021 Allergen Reaction Noted ??? Dilaudid [hydromorphone] Shortness of breath 08/18/2020 ??? Other Rash 02/21/2012 ??? Penicillins Rash 08/18/2020 ??? Sulfa (sulfonamide antibiotics) Rash 08/18/2020 Outpatient Encounter Medications as of 05/18/2021 Medication Sig Dispense Refill ??? [DISCONTINUED] busPIRone (BUSPAR) 5 mg tablet Take 1 tablet (5 mg total) by mouth 3 (three) times a day 90 tablet 3 ??? [DISCONTINUED] metFORMIN (GLUCOPHAGE) 500 mg tablet Take 0.5 tablets (250 mg total) by mouth 2 (two) times a day with meals 60 tablet 3 ??? buPROPion XL (WELLBUTRIN XL) 300 mg 24 hr tablet Take 1 tablet (300 mg total) by mouth every morning 90 tablet 3 ??? busPIRone (BUSPAR) 7.5 mg tablet Take 1 tablet (7.5 mg total) by mouth 2 (two) times a day 60 tablet 11 ??? metFORMIN (GLUCOPHAGE) 500 mg tablet Take 1 tablet (500 mg total) by mouth 2 (two) times a day with meals 60 tablet 11 ??? scopolamine 1 mg over 3 days patch [address] 1 patch on the skin every third day as needed (nausea) 4 patch 2 ??? [DISCONTINUED] buPROPion XL (WELLBUTRIN XL) 300 mg 24 hr tablet Take 1 tablet (300 mg total) bymouth every morning 90 tablet 1 No facility-administered encounter medications on file as of 05/18/2021. Review of Systems Constitutional: Negative. Negative for activity change, appetite change, fatigue and fever. HENT: Negative. Negative for congestion. Respiratory: Negative. Negative for cough, shortness of breath and wheezing. Cardiovascular: Negative. Negative for chest pain, palpitations and leg swelling. Gastrointestinal: Negative. Negative for abdominal pain, constipation, diarrhea, nausea and vomiting. Genitourinary: Negative. Negative for dysuria, flank pain, hematuria and urgency. Musculoskeletal: Negative for arthralgias, back pain and gait problem. Neurological: Negative. Psychiatric/Behavioral: Negative for decreased concentration and dysphoric mood. The patient is nervous/anxious. Vitals: 05/18/21 0902 BP: 108/74 BP Location: Left arm Patient Position: Sitting Pulse: 67 Temp: 36.7 ??C (98 ??F) SpO2: 99% Weight: 125.1 kg (275 lb 11.2 oz) Physical Exam Vitals and nursing note reviewed. Constitutional: General: She is not in acute distress. Appearance: Normal appearance. She is not ill-appearing, toxic-appearing or diaphoretic. HENT: Head: Normocephalic and atraumatic. Pulmonary: Effort: Pulmonary effort is normal. Breath sounds: Normal breath sounds. Musculoskeletal: General: Normal range of motion. Skin: General: Skin is warm. Neurological: General: No focal deficit present. Mental Status: She is alert and oriented to person, place, and time. Assessment/Plan Diagnoses and all orders for this visit: Anxiety (F41.9) (Primary) Assessment & Plan: Increase BuSpar to 7.5 mg twice daily Orders: - buPROPion XL (WELLBUTRIN XL) 300 mg 24 hr tablet; Take 1 tablet (300 mg total) by mouth every morning Episode of recurrent major depressive disorder, unspecified depression episode severity (HCC) (F33.9) Assessment & Plan: Stable on Wellbutrin, continue medication the same at this time Orders: - buPROPion XL (WELLBUTRIN XL) 300 mg 24 hr tablet; Take 1 tablet (300 mg total) by mouth every morning Obesity, morbid, BMI 40.0-49.9 ([facility]) (E66.01) Assessment & Plan: Congratulated on weight loss. Encouraged continued attempts at heart healthy diet and exercise 4 times a week for 30 minutes each session. Morbid obesity with BMI of 40.0-44.9, adult ([facility]) (E66.01, Z68.41) Assessment & Plan: Congratulated on weight loss. Encouraged continued attempts at heart healthy diet and exercise 4 times a week for 30 minutes each session. History of COVID-19 (Z86.16) Assessment & Plan: Resolved H/O motion sickness (Z87.898) Other orders - metFORMIN (GLUCOPHAGE) 500 mg tablet; Take 1 tablet (500 mg total) by mouth 2 (two) times a day with meals - busPIRone (BUSPAR) 7.5 mg tablet; Take 1 tablet (7.5 mg total) by mouth 2 (two) times a day - scopolamine 1 mg over 3 days patch 3 day; Place 1 patch on the skin every third day as needed (nausea) Orders Placed This Encounter ??? metFORMIN (GLUCOPHAGE) 500 mg tablet Sig: Take 1 tablet (500 mg total) by mouth 2 (two) times a day with meals Dispense: 60 tablet Refill: 11 ??? busPIRone (BUSPAR) 7.5 mg tablet Sig: Take 1 tablet (7.5 mg total) by mouth 2 (two) times a day Dispense: 60 tablet Refill: 11 ??? buPROPion XL (WELLBUTRIN XL) 300 mg 24 hr tablet Sig: Take 1 tablet (300 mg total) by mouth every morning Dispense: 90 tablet Refill: 3 ??? scopolamine 1 mg over 3 days patch 3 day Sig: Place 1 patch on the skin every third day as needed (nausea) Dispense: 4 patch Refill: 2 CHELSI Turner documented in this encounter Miscellaneous Notes * Assessment & Plan Note - Ami Lowery PA - 05/18/2021 12:37 PM CDT Associated Problem(s): Obesity, morbid, BMI 40.0-49.9 ([facility]) Congratulated on weight loss. Encouraged continued attempts at heart healthy diet and exercise 4 times a week for 30 minutes each session. * Assessment & Plan Note - Ami Lowery PA - 05/18/2021 12:36 PM CDT Associated Problem(s): BMI 40.0-44.9, adult (HCC) Congratulated on weight loss. Encouraged continued attempts at heart healthy diet and exercise 4 times a week for 30 minutes each session. * Assessment & Plan Note - Ami Lowery PA - 05/18/2021 12:36 PM CDT Associated Problem(s): History of COVID-19 Resolved * Assessment & Plan Note - Ami Lowery PA - 05/18/2021 12:36 PM CDT Associated Problem(s): Episode of recurrent major depressive disorder (HCC) Stable on Wellbutrin, continue medication the same at this time * Assessment & Plan Note - Ami Lowery PA - 05/18/2021 12:36 PM CDT Associated Problem(s): Anxiety Increase BuSpar to 7.5 mg twice daily documented in this encounter Plan of Treatment Not on file documented as of this encounter Visit Diagnoses Diagnosis Anxiety- Primary Anxiety state, unspecified Episode of recurrent major depressive disorder, unspecified depression episode severity (HCC) Obesity, morbid, BMI 40.0-49.9 (HCC) Morbid obesity with BMI of 40.0-44.9, adult (HCC) History of COVID-19 H/O motion sickness documented in this encounter Discontinued Medications Medication Sig Discontinue Reason Start Date End Da te metFORMIN (GLUCOPHAGE) 500 mg tabletIndications:Morbid obesity with BMI of 40.0-44.9, adult (HCC) Take 0.5 tablets (250 mg total) by mouth 2 (two) times a day with meals 01/17/2021 05/18/2021 busPIRone (BUSPAR) 5 mg tabletIndications:Genera lized Anxiety Disorder Take 1 tablet (5 mg total) by mouth 3 (three) times a day 01/17/2021 05/18/2021 buPROPion XL (WELLBUTRIN XL) 300 mg 24 hr tabletIndications:Episod e of recurrent major depressive disorder, unspecified depression episode severity (HCC),Anxiety Take 1 tablet (300 mg total) by mouth every morning Reorder 12/05/2020 05/18/2021 documented as of this encounter Care Teams Manager Relationship Relationship Specialty Start Date End Date Ami Lowery PA PCP - General Commercial Relationship Manager 11/07/20 documented as of this encounter
--- OUTSIDE RECORDS SUMMARY | 2024-03-09 20:19 | XMS_ITS | Encounter Summary ---
Author Organization [facility] Address [address] [place] [address] Care Team Providers Care Manager Fiber Name Role Phone Ami Lowery Primary Care Provider +1- [phone] Reason for Visit * Reason Comments Follow-up Encounter Details Date Type Department Care Team (Late st Contact Info) Description 01/17/2021 8:30 AM EDGE PLUGGER Office Visit [facility] Family Medicine [address] [place] [phone] Ami Lowery PA [address] [place] [address] Episode of recurrent major depressive disorder, unspecified depression episode severity (HCC) (Primary Dx); Anxiety; Cigarette smoker; Morbid obesity with BMI of 40.0-44.9, adult (HCC); Obesity, morbid, BMI 40.0-49.9 (HCC) Social History Tobacco Use Types Packs/Day Years Used Date Smoking Tobacco: Former Cigarettes Q uit: 11/28/2020 Smokeless Tobacco: Never PHQ-2 Answer Date Recorded PHQ-2 Total Score 4 01/17/2021 Comments No Sex and Gender Information Value Date Recorded Sex Assigned at Not on file Legal Sex Female 6:08 PM EDGE PLUGGER Gender Identity Not on file Sexual Orientation Not on file Occupation Industry Job Start Date Job End Date [employer] Not on file Not on file Not on file documented as of this encounter Last Filed Vital Signs Vital Sign Reading Time Taken Comments Blood Pressure 112/78 01/17/2021 8:37 AM EDGE PLUGGER Pulse 64 01/17/2021 8:37 AM EDGE PLUGGER Temperature - - Respiratory Rate 18 01/17/2021 8:37 AM EDGE PLUGGER Oxygen Saturation 98% 01/17/2021 8:37 AM EDGE PLUGGER Inhaled Oxygen Concentration - - Weight 133.8 kg (295 lb) 01/17/2021 8:37 AM EDGE PLUGGER Height 175.3 cm (5' 9 ) 01/17/2021 8:37 AM EDGE PLUGGER Body Mass Index 43.56 01/17/2021 8:37 AM EDGE PLUGGER documented in this encounter Ordered Prescriptions Prescription Sig Dispense Quantity Refills Last Filled Start Date End Date metFORMIN (GLUCOPHAGE) 500 mg tabletIndications: Morbid obesity with BMI of 40.0-44.9, adult (HCC) Take 0.5 tablets (250 mg total) by mouth 2 (two) times a day with meals 60 tablet 3 01/17/2021 2 busPIRone (BUSPAR) 5 mg tabletIndications: Generalized Anxiety Disorder Take 1 tablet (5 mg total) by mouth 3 (three) times a day 90 tablet 3 01/17/2021 2 documented in this encounter Progress Notes * Ami Lowery PA - 01/17/2021 8:30 AM CST Images from the original note were not included. Chief Complaint Follow-up HPI Here for f/u of weight gain, depression, and anxiety. Struggling with weight. Insurance won't cover bariatric surgery. Wondering about a med to help. Struggling with depression/anxiety - thinks the wellbutrin is helping slightly. Allergies as of 01/17/2021 - Reviewed 01/17/2021 Allergen Reaction Noted ??? Dilaudid [hydromorphone] Shortness of breath 08/18/2020 ??? Other Rash 02/21/2012 ??? Penicillins Rash 08/18/2020 ??? Sulfa (sulfonamide antibiotics) Rash 08/18/2020 Outpatient Encounter Medications as of 01/17/2021 Medication Sig Dispense Refill ??? buPROPion XL (WELLBUTRIN XL) 300 mg 24 hr tablet Take 1 tablet (300 mg total) by mouth every morning 90 tablet 1 ??? busPIRone (BUSPAR) 5 mg tablet Take 1 tablet (5 mg total) by mouth 3 (three) times a day 90 tablet 3 ??? metFORMIN (GLUCOPHAGE) 500 mg tablet Take 0.5 tablets (250 mg total) by mouth 2 (two) times a day with meals 60 tablet 3 ??? [DISCONTINUED] azithromycin (Zithromax Z-Juan) 250 mg tablet 2 tablets on day 1, days 2-5 1 tablet once daily 5 tablet 0 ??? [DISCONTINUED] loratadine (CLARITIN) 10 mg tablet Take 1 tablet (10 mg total) by mouth daily (Patient not taking: Reported on 01/17/2021) 30 tablet 2 No facility-administered encounter medications on file as of 01/17/2021. Review of Systems Constitutional: Negative for fatigue, [...] for confusion. The patient is nervous/anxious. Vitals: 01/17/21 0837 BP: 112/78 Pulse: 64 Resp: 18 SpO2: 98% Weight: 133.8 kg (295 lb) Height: 175.3 cm (5' 9 ) [...] severity (HCC) (F33.9) (Primary) Assessment & Plan: Add buspar, continue with wellbutrin daily Anxiety (F41.9) Assessment & Plan: Add buspar, continue with wellbutrin daily Cigarette smoker (F17.210) Assessment & Plan: Has cut back to 1 cig/day, encouraged her to continue to work on smoking cessation Morbid obesity with BMI of 40.0-44.9, adult ([facility]) (E66.01, Z68.41) Assessment & Plan: Obesity is unchanged. Discussed the patient's BMI. The BMI is above average. BMI management plan is completed. BMI Follow-up includes: nutrition counseling, exercise counseling and education provided. Will add metformin bid in addition to heart healthy diet and exercise Orders: - metFORMIN (GLUCOPHAGE) 500 mg tablet; Take 0.5 tablets (250 mg total) by mouth 2 (two) times a day with meals Obesity, morbid, BMI 40.0-49.9 ([facility]) (E66.01) Assessment & Plan: Obesity is unchanged. Discussed the patient's BMI. The BMI is above average. BMI management plan is completed. BMI Follow-up includes: nutrition counseling, exercise counseling and education provided. Will add metformin bid in addition to heart healthy diet and exercise Other orders - busPIRone (BUSPAR) 5 mg tablet; Take 1 tablet (5 mg total) by mouth 3 (three) times a day Orders Placed This Encounter ??? busPIRone (BUSPAR) 5 mg tablet Sig: Take 1 tablet (5 mg total) by mouth 3 (three) times a day Dispense: 90 tablet Refill: 3 ??? metFORMIN (GLUCOPHAGE) 500 mg tablet Sig: Take 0.5 tablets (250 mg total) by mouth 2 (two) times a day with meals Dispense: 60 tablet Refill: 3 CHELSI Turner PLUGGER documented in this encounter Miscellaneous Notes * Assessment & Plan Note - Ami Lowery PA - 01/17/2021 5:16 PM EDGE PLUGGER Associated Problem(s): Cigarette smoker Has cut back to 1 cig/day, encouraged her to continue to work on smoking cessation PLUGGER * Assessment & Plan Note - Ami Lowery PA - 01/17/2021 5:16 PM EDGE PLUGGER Associated Problem(s): Episode of recurrent major depressive disorder (HCC) Add buspar, continue with wellbutrin daily PLUGGER * Assessment & Plan Note - Ami Lowery PA - 01/17/2021 5:16 PM EDGE PLUGGER Associated Problem(s): Anxiety Add buspar, continue with wellbutrin daily PLUGGER * Assessment & Plan Note - Ami Lowery PA - 01/17/2021 5:15 PM EDGE PLUGGER Associated Problem(s): Obesity, morbid, BMI 40.0-49.9 (HCC) Obesity is unchanged. Discussed the patient's BMI. The BMI is above average. BMI management plan is completed. BMI Follow-up includes: nutrition counseling, exercise counseling and education provided. Will add metformin bid in addition to heart healthy diet and exercise PLUGGER * Assessment & Plan Note - Ami Lowery PA - 01/17/2021 5:15 PM EDGE PLUGGER Associated Problem(s): BMI 40.0-44.9, adult (HCC) Obesity is unchanged. Discussed the patient's BMI. The BMI is above average. BMI management plan is completed. BMI Follow-up includes: nutrition counseling, exercise counseling and education provided. Will add metformin bid in addition to heart healthy diet and exercise PLUGGER documented in this encounter Plan of Treatment Not on file documented as of this encounter Visit Diagnoses Diagnosis Episode of recurrent major depressive disorder, unspecified depression episode severity (HCC)- Primary Anxiety Anxiety state, unspecified Cigarette smoker Tobacco use disorder Morbid obesity with BMI of 40.0-44.9, adult (HCC) Obesity, morbid, BMI 40.0-49.9 (HCC) documented in this encounter Discontinued Medications Medication Sig Discontinue Reason Start Date End Da te azithromycin (Zithromax Z-Juan) 250 mg tabletIndications:Acute non-recurrent pansinusitis 2 tablets on day 1, days 2-5 1 tablet once daily Therapy completed 12/15/2020 01/17/2021 loratadine (CLARITIN) 10 mg tabletIndications:Left ear pain,Seasonal allergic rhinitis due to pollen Take 1 tablet (10 mg total) by mouth daily 11/07/2020 01/17/2021 documented as of this encounter Care Teams Manager Fiber Relationship Specialty Start Date End Date Ami Lowery PA PCP - General Vegetable Sorter 11/07/20 documented as of this encounter
--- OUTSIDE RECORDS SUMMARY | 2024-03-09 20:19 | XMS_ITS | Encounter Summary ---
Author Organization [facility] Address [address] [address] Care Team Providers Care X Ray Operator Name Role Phone Ami Lowery Primary Care Provider [phone]- [phone] Reason for Visit * Reason Onset Date Comments COVID-19 EVALUATION 12/15/2020 Encounter Details Date Type Department Care Team (Latest Contact Info) Description 12/15/2020 10:30 AM CDT Clinical Support [facility] Testing Site - [address] [phone] Exposure to COVID-19 virus (Primary Dx) Social History Tobacco Use Types Packs/Day Years Used Date Smoking Tobacco: Every Day PHQ-2 Answer Date Recorded PHQ-2 Total Score (If total score is 3 or more points, staff should administer the PHQ-9) 2 12/15/2020 Comments No Sex and Gender Information Value Date Recorded Sex Assigned at Not on file Legal Sex Female 6:08 PM STATION EXAMINER Gender Identity Not on file Sexual Orientation Not on file Occupation Industry Job Start Date Job End Date [employer] Not on file Not on file Not on file documented as of this encounter Progress Notes * Khushbu Arguello MA - 12/15/2020 10:30 AM CDT Patient here today for testing after evaluation by a clinician. The patient meets testing criteria for COVID-19 based on symptoms which include: cough and nasal congestion. Collection of the swabs took place in the [facility] Site. Complete documentation is noted in the patient chart and the [id number] LOS will be applied. documented in this encounter Plan of Treatment Not on file documented as of this encounter Visit Diagnoses Diagnosis Exposure to COVID-19 virus- Primary documented in this encounter Additional Health Concerns Infection Onset Date Last Indicated Resolved Time COVID: Suspected 12/15/2020 12/15/2020 12/15/2020 7:21 PM CDT documented as of this encounter Care Teams X Ray Operator Relationship Specialty Start Date End Date Ami Lowery PA PCP - General [employer] Hr Developer 11/07/20 documented as of this encounter
--- OUTSIDE RECORDS SUMMARY | 2024-03-09 20:25 | XMS_ITS | Continuity of Care Document ---
Author Organization [facility] Address [address] [place] [address] Phone Care Team Providers Care Java Tech Name Role Phone Fransico Ponce MD Unavailable [...] Providers Copied on Encounter [facility] , [address], [place], [address], [place] tel:[phone] [facility] Pain in left footClosed fracture of base of fifth metatarsal bone of left foot, initial encounter Kris Bateman. [address], [place], [place], [id number] . tel: [phone] [facility] , [address] [address], [place], [address], [place] tel:[phone] [facility] Pain in left footClosed fracture of base of fifth metatarsal bone of left foot, initial encounter 1 Kris Bateman. [address], [place], [place], [id number] . tel: [phone] OFFICE/OUTPAT IENT VISIT NEW [facility] , [address], [place], [address], [place] tel:[phone] [facility] Closed fracture of base of fifth metatarsal bone of left foot, initial encounterBody mass index [BMI]40.0-44.9 , adult Sep- 1 Kris Bateman. [address], [place], [place], [id number] . tel: [phone] Family History Family Member Type Diagnosis Age At Onset Mother Problem Alive and well Father Problem hypertension Brother Problem Alive and well Father Problem Diabetes mellitus Brother Problem Diabetes mellitus Brother Problem hypertension Mother Problem Thyroid disorder Sister Problem Alive and well Father Problem Alive and well Payers Payer name Insurance type Covered republican ID Kristi santana(s) [facility] [employer] PPO [id number] Social History Type Description Quantity Date Captured [...]
== END 2024-03-03 08:58 | disposition home or self-care (01) ==
PROVIDERS: Emergency Provider Registered Nurse
DX: H66.92 Otitis media, unspecified, left ear (principal); F41.8 Other specified anxiety disorders; Z87.891 Personal history of nicotine dependence
CPT/HCPCS: 87081; 87880; 99213; G0463